=== PATIENT | male | born 1955 | race Caucasian/White ===

== ENCOUNTER 2020-07-10 13:25 | Outpatient (CLI) | payer OTHER ==
[~2020-07-10] VITALS: Ht 190.5 cm; Wt 104.5 kg
[2020-07-10] MEDS ORDERED: PRIM50TA33 PO (14:54)
[2020-07-10] MEDS ORDERED: CITA20TA9 PO (14:54)
[2020-07-10] MEDS ORDERED: CITA10TA7 PO (14:54)
[2020-07-10] MEDS ORDERED: BUPR150T24 PO (14:54)
[2020-07-10] MEDS ORDERED: CHOL200059 PO (15:39)
[2020-07-10] MEDS ORDERED: MULT-1056 PO (15:39)
[2020-07-10] MEDS ORDERED: AMLO1CAP5 PO (15:39)
[2020-07-10] MEDS ORDERED: PANT40TA52 PO (15:39)
[2020-07-10] MEDS ORDERED: VITA100T4 PO (15:39)
[2020-07-10] MEDS ORDERED: THIA100T66 PO (15:39)
[2020-07-10] MEDS ORDERED: LUTE20CA13 PO (15:39)
[2020-07-10] MEDS ORDERED: GABA300C PO (15:39)
[2020-07-11] MEDS ORDERED: TMSL.4C PO (10:25)
[2020-07-11] MEDS ORDERED: TRM50T PO (10:25)
[2020-07-11] MEDS ORDERED: NITR-65 PO (10:25)
== END 2020-07-10 15:43 | disposition home or self-care (01) ==
LOC: PREOP 13:25
PROVIDERS: ATTEND Urology
DX: Z01.818 Encounter for other preprocedural examination (principal)

== ENCOUNTER → 2020-07-10 | Outpatient (CLI) | payer OTHER ==
[~2020-07-10] MED LIST: AMLO1CAP5 PO; BUPR150T24 PO; CHOL200059 PO; CITA10TA7 PO; CITA20TA9 PO; GABA300C PO; LUTE20CA13 PO; MULT-1056 PO; NITR-65 PO; PANT40TA52 PO; PRIM50TA33 PO; THIA100T66 PO; TMSL.4C PO; TRM50T PO; VITA100T4 PO
--- NOTE | 2020-07-10 12:29 | Diagnostic Imaging Report ---
Supine abdomen at 11:21. Indication: Left nephrolithiasis There are no prior studies for comparison. 2 supine views of the abdomen were obtained. There is a ureteral stent in place on the left. The stent seems to be in good position. There is no clear evidence for a calculus overlying the left kidney. However there is a faint 3 to 4 mm calcific density along the pelvis adjacent to the ureteral stent. This could represent a small calculus within the left ureter. This could also be related to a phlebolith. There is a 6 mm rounded calcific density overlying the right kidney and there are a few punctate calcifications overlying the inferior pole of the right kidney as well. I suspect these findings are intrarenal. There is gas in both large and small bowel in a nonspecific fashion. There is no evidence for a bowel obstruction. There is at least a moderate amount of fecal material throughout the ascending, transverse and descending colon. There is no mass or organomegaly identified. The osseous structures are intact. Impression: 1. There is a ureteral stent in place on the left. While there is no evidence for a calculus overlying the left kidney, there is a faint 3 to 4 minute calcific density adjacent to the stent low in the pelvis. This could be within the distal left ureter. 2. There also appear to be nonobstructive calculi overlying the right kidney. Dictated by: Dictated on workstation # [id number]
== END ==
LOC: RAD 10:55
PROVIDERS: ATTEND Urology
DX: N20.0 Calculus of kidney (principal); Z96.0 Presence of urogenital implants
CPT/HCPCS: 74018

== ENCOUNTER 2020-07-11 07:10 | Day surgery (SDC) | payer OTHER ==
[~2020-07-11] VITALS: Ht 190.5 cm; Wt 104.5 kg
[2020-07-11] VITALS (10 sets, daily range): BP systolic 98–137; BP diastolic 65–95
[~2020-07-11 07:10] MED LIST changes: -NITR-65 PO; -TMSL.4C PO; -TRM50T PO
[2020-07-11] MEDS ORDERED: cefTRIAXone FOR IV USE 1,000 MG in WATER (STERILE) FOR INJECTION 10 ML IV ONE (07:30)
[2020-07-11] MEDS ORDERED: SEVOFLURANE (ULTANE) 15 ML INHAL SOLN ONE ×2 (07:35→09:02)
[2020-07-11] MEDS ORDERED: fentaNYL INJ 100 MCG/2 ML AMP ONE (07:35)
[2020-07-11] MEDS ORDERED: proPOfol 200 MG/20 ML (DIPRIVAN) VIAL IV ONE (07:35)
[2020-07-11] MEDS ORDERED: LIDOCAINE PF 2% 5 ML (XYLOCAINE) VIAL ONE (07:35)
[2020-07-11] MEDS ORDERED: ONDANSETRON 4 MG/2 ML (SDV) Z0FRAN ONE (07:35)
[2020-07-11] MEDS ORDERED: MIDAZOLAM 2 MG/2 ML (VERSED) VIAL ONE (07:35)
--- NOTE | 2020-07-11 07:52 | Diagnostic Imaging Report ---
INDICATION: Stones. FINDINGS: There is a right renal calculus measuring 5 mm. Left-sided double-J stent present. There are some radiopacities projecting along the course of the distal left stent which may be overlying phleboliths or retained ureteral stones. IMPRESSION: Right-sided nephrolithiasis, pelvic calcifications project over the course of the distal left ureteral stent. Dictated by: Dictated on workstation # [id number]
[2020-07-11] MEDS ORDERED: cefTRIAXone 1,000 MG IV (ROCEPHIN) VIAL ONE (07:59)
[2020-07-11] MEDS ORDERED: WATER (STERILE) FOR INJECTION 10 ML ONE (07:59)
[2020-07-11] MEDS: LACTATED RINGERS 1,000 ML IV PRN ×2 (08:10→09:16)
--- NOTE | 2020-07-11 08:31 | Progress Note-Pre Operative ---
Pre-Operative Progress Note H&P Reviewed The H&P was reviewed, patient examined and no changes noted. Date Seen by Provider: July 11, 2020 Time Seen by Provider: 08:30 Date H&P Reviewed: July 11, 2020 Time H&P Reviewed: 08:30 Pre-Operative Diagnosis: LT DISTAL URETERAL STONE NATALIYA GARCIA MD July 11, 2020 08:31
[2020-07-11] MEDS ORDERED: FUROSEMIDE 40 MG/4 ML INJ (LASIX) ONE (08:36)
[2020-07-11] MEDS ORDERED: KETOROLAC 30 MG/ML VIAL ONE (08:36)
[2020-07-11] MEDS ORDERED: fentaNYL INJ 100 MCG/2 ML AMP IVP ONE (08:45)
[2020-07-11] MEDS ORDERED: ONDANSETRON 4 MG/2 ML (SDV) Z0FRAN IVP PRN (08:45)
[2020-07-11] MEDS ORDERED: morphine INJ 10 MG/ML 1ML (SYR OR VIAL) IVP ONE (08:45)
[2020-07-11] MEDS ORDERED: MEPERIDINE (DEMEROL) INJ 50 MG/ML IVP ONE (08:45)
--- NOTE | 2020-07-11 08:54 | Progress Note-Post Operative ---
Post-Operative Progess Note Surgeon (s)/Clinical Services Manager (s) Surgeon NATALIYA GARCIA MD Clinical Services Manager: NONE Pre-Operative Diagnosis LT DISTAL URETERAL STONE Post-Operative Diagnosis SAME Procedure & Operative Findings Date of Procedure 07/11/20 Procedure Performed/Findings LT ESWL, CYSTOSCOPY WITH REMOVAL OF LT STENT Anesthesia Type GENERAL Estimated Blood Loss Estimated blood loss (mL): NONE Specimens/Packing Specimens Removed NONE TO PATH Packing: NONE NATALIYA GARCIA MD July 11, 2020 08:54
--- NOTE | 2020-07-11 08:57 | Discharge Inst-Urology ---
Discharge Inst-Urology Reconcile Patient Problems Problems Reviewed?: Yes Final Diagnosis LT DISTAL URETERAL STONE Patient Instructions/Follow Up Plan/Assessment/Instructions Please make appointment to been seen in office Monday 07/24, KUB prior to it KUB on way home Post ESWL instructions Stay off ASA Increase oral fluids for 48 hours and then as needed. Diet and Activity as tolerated. If questions or concerns contact your physician Or seek help at emergency department. NATALIYA GARCIA MD July 11, 2020 08:57
[2020-07-11] MEDS ORDERED: TRM50T PO (10:25)
[2020-07-11] MEDS ORDERED: TMSL.4C PO (10:25)
[2020-07-11] MEDS ORDERED: NITR-65 PO (10:25)
--- NOTE | 2020-07-11 11:53 | Diagnostic Imaging Report ---
INDICATION: Nephrolithiasis, post extracorporal shockwave lithotripsy. TECHNIQUE: Two supine views of the abdomen at 11:27 AM. CORRELATION STUDY: 07/11/2020. FINDINGS: The left ureteral stent has been removed. There is an approximately 6 mm calcification projecting over the inferior right renal silhouette. Calcifications in the pelvis appear unchanged. There is a moderate amount of overlying bowel gas and stool obscuring detail. Punctate densities over the additional abdomen may be reflective of gastrointestinal contents. Leftward curvature of the lumbar spine is present. IMPRESSION: Nonobstructing right renal stone. Left ureteral stent removal. Moderate stool retention. Dictated by: Dictated on workstation # [id number]
--- NOTE | 2020-07-11 12:32 | Anesthesia-General Post-Op ---
General Patient Condition Mental Status/LOC: Same as Preop Cardiovascular: Satisfactory Nausea/Vomiting: Absent Respiratory: Satisfactory Pain: Controlled Complications: Absent Post Op Complications Complications None Follow Up Care/Instructions Patient Instructions None needed. Anesthesia/Patient Condition Patient Condition Patient is doing well, no complaints, stable vital signs, no apparent adverse anesthesia problems. No complications reported per nursing. ANABEL GARCIA CRNA July 11, 2020 12:32
--- NOTE | 2020-07-11 13:34 | OPERATIVE REPORT ---
DATE OF SERVICE: 07/11/2020 PREOPERATIVE DIAGNOSIS: Left distal ureteral stone and BPH. POSTOPERATIVE DIAGNOSIS: Left distal ureteral stone and BPH. OPERATION PERFORMED: Left ESWL, cystoscopy and removal of left ureteral stent. SURGEON: Gera Garcia MD ANESTHESIA: General. COMPLICATIONS: None. DESCRIPTION OF PROCEDURE: Under satisfactory general anesthesia, the patient in supine position on the ESWL table, the left distal ureteral stone was localized. Shocks were delivered at a kV rising it gradually from 6 to 11. Total of 3000 shocks were delivered with complete disappearance of the stone. Towards the end of the procedure, the genitalia were prepped and draped in the usual sterile fashion. Flexible cystoscope was introduced in the bladder. The distal end of the left ureteral stent was grasped with grasping forceps and removed intact. The patient received 40 mg of Lasix and 30 mg of Toradol IV at the end of the procedure. He tolerated the procedure and anesthesia well and was sent to recovery room in stable condition. PLAN: In 2 weeks, if he wishes, so we can do ESWL on the right renal stone. Job ID: [id number] DocumentID: [id number] Dictated Date: 07/11/2020 09:15:26 Clinical Pharmacist Date: 07/11/2020 13:33:52 Dictated By: GERA GARCIA MD
== END 2020-07-11 11:29 | disposition home or self-care (01) ==
LOC: SDC 07:10
PROVIDERS: ATTEND Urology
DX: N20.1 Calculus of ureter (principal); N40.0 Benign prostatic hyperplasia without lower urinary tract symptoms; I10 Essential (primary) hypertension; K21.9 Gastro-esophageal reflux disease without esophagitis; G51.0 Bell's palsy; Z79.899 Other long term (current) drug therapy
CPT/HCPCS: 74018; 87081

== ENCOUNTER 2020-07-20 05:38 | Outpatient (CLI) | payer OTHER ==
[~2020-07-20] VITALS: Ht 193 cm; Wt 104.5 kg
[~2020-07-20 05:38] MED LIST changes: +NITR-65 PO; +TMSL.4C PO; +TRM50T PO
[2020-07-24] MEDS ORDERED: ASPI-999 PO (12:53)
[2020-07-25] MEDS ORDERED: NITR-65 PO (12:30)
[2020-07-25] MEDS ORDERED: TRM50T PO (12:34)
[2020-07-25] MEDS ORDERED: TMSL.4C PO (12:34)
== END 2020-07-24 14:10 | disposition home or self-care (01) ==
LOC: PREOP 05:38
PROVIDERS: ATTEND Urology
DX: Z01.818 Encounter for other preprocedural examination (principal)

== ENCOUNTER → 2020-07-24 | Outpatient (CLI) | payer OTHER ==
[~2020-07-24] MED LIST changes: +ASPI-999 PO
--- NOTE | 2020-07-24 15:53 | Diagnostic Imaging Report ---
INDICATION: Right nephrolithiasis KUB 12:52 PM There is 6 mm calculus projecting over the inferior pole of the right kidney. There is a moderate amount of stool in the colon. Bowel gas pattern is normal. There is scoliosis of the lumbar spine convex to the left. IMPRESSION: Right nephrolithiasis. No change from 07/11/2020. Dictated by: Dictated on workstation # [id number]
== END ==
LOC: RAD 11:47
PROVIDERS: ATTEND Urology
DX: N20.0 Calculus of kidney (principal)
CPT/HCPCS: 74018

== ENCOUNTER 2020-07-25 07:19 | Day surgery (SDC) | payer OTHER ==
[~2020-07-25] VITALS: Ht 193 cm; Wt 104.5 kg
[2020-07-25] VITALS (10 sets, daily range): BP systolic 96–136; BP diastolic 67–109
--- NOTE | 2020-07-25 07:53 | Progress Note-Pre Operative ---
Pre-Operative Progress Note H&P Reviewed The H&P was reviewed, patient examined and no changes noted. Date Seen by Provider: July 25, 2020 Time Seen by Provider: 07:52 Date H&P Reviewed: July 25, 2020 Time H&P Reviewed: 07:52 Pre-Operative Diagnosis: RT RENAL STONE NATALIYA GARCIA MD July 25, 2020 07:53
[2020-07-25] MEDS ORDERED: cefTRIAXone FOR IV USE 1,000 MG in WATER (STERILE) FOR INJECTION 10 ML IV ONE (08:00)
[2020-07-25] MEDS ORDERED: MIDAZOLAM 2 MG/2 ML (VERSED) VIAL IV ONE (08:00)
[2020-07-25] MEDS: LACTATED RINGERS 1,000 ML IV PRN ×2 (08:09→11:00)
--- NOTE | 2020-07-25 08:47 | Diagnostic Imaging Report ---
INDICATION: Pre-lithotripsy. Comparison 07/24/2020. FINDINGS: 6 mm calculus again noted overlying the inferior pole right kidney. This is unchanged in location since previous exam. No new calculi have developed. IMPRESSION: Persistent 6 mm calculus lower pole calyx right kidney. Dictated by: Dictated on workstation # [id number]
[2020-07-25] MEDS ORDERED: MIDAZOLAM 2 MG/2 ML (VERSED) VIAL ONE (09:11)
[2020-07-25] MEDS ORDERED: proPOfol 200 MG/20 ML (DIPRIVAN) VIAL IV ONE (09:11)
[2020-07-25] MEDS ORDERED: ONDANSETRON 4 MG/2 ML (SDV) Z0FRAN ONE (09:11)
[2020-07-25] MEDS ORDERED: LIDOCAINE PF 2% 5 ML (XYLOCAINE) VIAL ONE (09:11)
[2020-07-25] MEDS ORDERED: fentaNYL INJ 100 MCG/2 ML AMP ONE (09:12)
[2020-07-25] MEDS ORDERED: FUROSEMIDE 40 MG/4 ML INJ (LASIX) ONE (09:14)
[2020-07-25] MEDS ORDERED: KETOROLAC 30 MG/ML VIAL ONE (09:14)
[2020-07-25] MEDS ORDERED: SEVOFLURANE (ULTANE) 15 ML INHAL SOLN ONE ×4 (09:14→10:56)
--- NOTE | 2020-07-25 09:47 | Progress Note-Post Operative ---
Post-Operative Progess Note Surgeon (s)/Iron Molder Helper (s) Surgeon NATALIYA GARCIA MD Iron Molder Helper: NONE Pre-Operative Diagnosis RT RENAL STONE Post-Operative Diagnosis SAME Procedure & Operative Findings Date of Procedure 07/25/20 Procedure Performed/Findings RT ESWL Anesthesia Type GENERAL Estimated Blood Loss Estimated blood loss (mL): NONE Specimens/Packing Specimens Removed NONE Packing: NONE NATALIYA GARCIA MD July 25, 2020 09:47
--- NOTE | 2020-07-25 09:49 | Discharge Inst-Urology ---
Discharge Inst-Urology Reconcile Patient Problems Problems Reviewed?: Yes Final Diagnosis RT RENAL STONE Patient Instructions/Follow Up Plan/Assessment/Instructions Please make appointment to been seen in office in 2 weeks. KUB prior to it KUB on way home Post ESWL instructions In 48 hours, if no bleeding, may resume ASA Increase oral fluids for 48 hours and then as needed. Diet and Activity as tolerated. If questions or concerns contact your physician Or seek help at emergency department. NATALIYA GARCIA MD July 25, 2020 09:49
[2020-07-25] MEDS ORDERED: ONDANSETRON 4 MG/2 ML (SDV) Z0FRAN IVP PRN (11:30)
[2020-07-25] MEDS ORDERED: morphine INJ 10 MG/ML 1ML (SYR OR VIAL) IVP ONE (11:30)
[2020-07-25] MEDS ORDERED: MEPERIDINE (DEMEROL) INJ 50 MG/ML IVP ONE (11:30)
[2020-07-25] MEDS ORDERED: PROMETHAZINE INJ 25 MG/ML (PHENERGAN) AMP IVP ONE (11:30)
--- NOTE | 2020-07-25 11:33 | Anesthesia-General Post-Op ---
General Patient Condition Mental Status/LOC: Same as Preop Cardiovascular: Satisfactory Nausea/Vomiting: Absent Respiratory: Satisfactory Pain: Controlled Complications: Absent Post Op Complications Complications None Follow Up Care/Instructions Patient Instructions None needed. Anesthesia/Patient Condition Patient Condition Patient is doing well, no complaints, stable vital signs, no apparent adverse anesthesia problems. No complications reported per nursing. RAIMUNDO OCASIO CRNA July 25, 2020 11:33
[2020-07-25] MEDS ORDERED: NITR-65 PO (12:30)
[2020-07-25] MEDS ORDERED: TRM50T PO (12:34)
[2020-07-25] MEDS ORDERED: TMSL.4C PO (12:34)
--- NOTE | 2020-07-25 12:34 | Diagnostic Imaging Report ---
INDICATION: Nephrolithiasis. KUB 12:29 PM FINDINGS: There is a small calculus projecting over the inferior pole of the right kidney. Measures approximately 5 mm in diameter. Bowel gas pattern is normal. IMPRESSION: Right nephrolithiasis. Dictated by: Dictated on workstation # [id number]
--- NOTE | 2020-07-25 15:03 | OPERATIVE REPORT ---
DATE OF SERVICE: 07/25/2020 PREOPERATIVE DIAGNOSIS: Right renal stone. POSTOPERATIVE DIAGNOSIS: Right renal stone. OPERATION PERFORMED: Right ESWL. SURGEON: Gera Garcia MD. ANESTHESIA: General. COMPLICATIONS: None. DESCRIPTION OF PROCEDURE: Under satisfactory general anesthesia, the patient in supine position on the ESWL table, the right renal stone was localized. Shocks were delivered at kV of 6, a total of 3000 shocks showed the stone to be fragmented. The patient received 30 mg of Toradol and 40 mg of Lasix IV at the end of the procedure. He tolerated the procedure and anesthesia well and was sent to recovery room in stable condition. Job ID: [id number] DocumentID: [id number] Dictated Date: 07/25/2020 11:01:38 Alumni Secretary Date: 07/25/2020 15:03:17 Dictated By: GERA GARCIA MD
== END 2020-07-25 13:15 | disposition home or self-care (01) ==
LOC: SDC 07:19
PROVIDERS: ATTEND Urology
DX: N20.0 Calculus of kidney (principal); G51.0 Bell's palsy; I10 Essential (primary) hypertension; K21.9 Gastro-esophageal reflux disease without esophagitis; Z79.82 Long term (current) use of aspirin; Z87.891 Personal history of nicotine dependence; Z79.899 Other long term (current) drug therapy; Z90.89 Acquired absence of other organs
CPT/HCPCS: 74018; 87081

== ENCOUNTER 2020-07-28 07:35 | Day surgery (SDC) | payer OTHER ==
[~2020-07-28] VITALS: Ht 190 cm; Wt 104.0 kg
[2020-07-28] VITALS (9 sets, daily range): BP systolic 81–143; BP diastolic 52–84
[2020-07-28] MEDS ORDERED: ONDANSETRON 4 MG/2 ML (SDV) Z0FRAN ONE ×2 (07:42→12:42)
[2020-07-28] MEDS ORDERED: fentaNYL INJ 100 MCG/2 ML AMP ONE ×2 (07:42→12:43)
[2020-07-28] MEDS ORDERED: KETOROLAC 30 MG/ML VIAL ONE (07:42)
[2020-07-28] MEDS ORDERED: KETOROLAC 30 MG/ML VIAL IVP ONE (08:00)
[2020-07-28] MEDS ORDERED: fentaNYL INJ 100 MCG/2 ML AMP IVP PRN (08:00)
[2020-07-28] MEDS ORDERED: ONDANSETRON 4 MG/2 ML (SDV) Z0FRAN IVP ONE (08:00)
[2020-07-28] MEDS ORDERED: fentaNYL INJ 100 MCG/2 ML AMP IVP STA (08:02)
[2020-07-28 08:09] LABS: BASOPHILS % (AUTO) 0 % (0-10); EOSINOPHILS % (AUTO) 0 % (0-10); HEMATOCRIT 42 % (40-54); LYMPHOCYTES # (AUTO) 1.1 10^3/uL (1.0-4.0); LYMPHOCYTES % (AUTO) 9 % (12-44); MEAN CORPUSCULAR HEMOGLOBIN 31 pg (25-34); MEAN CORPUSCULAR HGB CONC 33 g/dL (32-36); MEAN CORPUSCULAR VOLUME 94 fL (80-99); MONOCYTES # (AUTO) 0.4 10^3/uL (0.0-1.0); MONOCYTES % (AUTO) 3 % (0-12); NEUTROPHILS # (AUTO) 11.1 10^3/uL (1.8-7.8); NEUTROPHILS % (AUTO) 87 % (42-75); PLATELET COUNT 244 10^3/uL (130-400); WHITE BLOOD COUNT 12.8 10^3/uL (4.3-11.0)
[2020-07-28 08:12] LABS: ALBUMIN 4.3 GM/DL (3.2-4.5)
[2020-07-28 08:13] LABS: POTASSIUM 4.2 MMOL/L (3.6-5.0)
[2020-07-28 08:14] LABS: CALCIUM 9.5 MG/DL (8.5-10.1)
[2020-07-28 08:15] LABS: TOTAL PROTEIN 7.3 GM/DL (6.4-8.2)
[2020-07-28 08:17] LABS: BILIRUBIN,TOTAL 0.4 MG/DL (0.1-1.0)
--- NOTE | 2020-07-28 08:18 | ED GU-Male ---
General Chief Complaint: Abdominal/GI Problems Stated Complaint: KIDNEY STONES Nursing Triage Note: RIGHT SIDED FLANK PAIN. HX OF KIDNEY STONES. Source: patient Exam Limitations: no limitations History of Present Illness Date Seen by Provider: July 28, 2020 Time Seen by Provider: 07:53 Initial Comments Here with complaint of right flank pain to the groin. States he is quite uncomfortable. Had therapy on the to blast kidney stones on the right. Apparently he has to go back in a few weeks for a repeat procedure as they were unable to completely disrupt the stones per the patient. Denies nausea or vomiting. Denies blood in his urine or dysuria. Denies fever chills. Follows with Dr. Dhaliwal. Timing/Duration: this morning Severity/Quality: severe, aching, sharp Location: right flank Radiation: groin Activities at Onset: none Prior Genitourinary Problems: similar symptoms Modifying Factors: Improves With Other (Nothing making it better or worse) Associated Symptoms: dysuria; No fever/chills; lower back pain; No na usea/vomiting Allergies and Home Medications Allergies Coded Allergies: No Known Drug Allergies (Unverified , 07/24/20) Home Medications Amlodipine Besylate/Benazepril 1 Each Capsule, 1 EACH PO DAILY, (Reported) Bupropion HCl 150 Mg Tab.er.24h, 150 MG PO DAILY, (Reported) Cholecalciferol (Vitamin D3) 50 Mcg Tablet, 50 MCG PO DAILY, (Reported) Citalopram Hydrobromide 10 Mg Tablet, 10 MG PO DAILY, (Reported) Citalopram Hydrobromide 20 Mg Tablet, 20 MG PO DAILY, (Reported) Gabapentin 300 Mg Capsule, 900 MG PO DAILY, (Reported) Lutein 20 Mg Capsule, 20 MG PO DAILY, (Reported) Multivit-Min/FA/Lycopen/Lutein 1 Each Tablet, 1 EACH PO DAILY, (Reported) Nitrofurantoin Monohyd/M-Cryst 100 Mg Capsule, 1 TAB PO BID WITH MEALS Prescribed by: BENITA FERNANDEZ on 07/11/20 1025 Nitrofurantoin Monohyd/M-Cryst 100 Mg Capsule, 1 TAB PO BID WITH MEALS Prescribed by: LEFTY LANDERS on 07/25/20 1230 Pantoprazole Sodium 40 Mg Tablet.dr, 40 MG PO DAILY, (Reported) Primidone 50 Mg Tablet, 150 MG PO DAILY, (Reported) Tamsulosin HCl 0.4 Mg Cap, 0.4 MG PO DAILY Prescribed by: BENITA FERNANDEZ on 07/11/20 1025 Tamsulosin HCl 0.4 Mg Cap, 0.4 MG PO DAILY Prescribed by: LEFTY LANDERS on 07/25/20 1234 Thiamine HCl 100 Mg Tablet, 100 MG PO DAILY, (Reported) Tramadol HCl 50 Mg Tablet, 1-2 TAB PO Q4H PRN for PAIN-MODERATE (5-7) Prescribed by: BENITA FERNANDEZ on 07/11/20 1025 Tramadol HCl 50 Mg Tablet, 50-100 MG PO Q4H PRN for PAIN-MODERATE (5-7) Prescribed by: LEFTY LANDERS on 07/25/20 1234 Vitamin B Complex 100 No.2 100 Mg Tablet.er, 100 MG PO DAILY, (Reported) Patient Home Medication List Home Medication List Reviewed: Yes Review of Systems Review of Systems Constitutional: see HPI; No chills, No fever EENTM: no symptoms reported Respiratory: No cough, No short of breath Cardiovascular: No chest pain, No palpitations Gastrointestinal: abdominal pain; No nausea, No vomiting Genitourinary: dysuria, flank pain Musculoskeletal: back pain; No muscle pain Skin: no symptoms reported Psychiatric/Neurological: No Symptoms Reported All Other Systemes Reviewed Negative Unless Noted: Yes Past Adtalac-Oexlmt-Pxbvcc Hx Past Med/Social Hx: Reviewed Nursing Past Med/Soc Hx Patient Social History Alcohol Use: Denies Use Smoking Status: Never a Smoker Type Used: Cigars Former Smoker, Quit: Mar 15, 2017 Recent Infectious Disease Expo: No Recent Hopitalizations: No Immunizations Up To Date Date of Pneumonia Vaccine: July 24, 2002 Date of Influenza Vaccine: Dec 15, 2020 Seasonal Allergies Seasonal Allergies: No Past Medical History Surgeries: Yes (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3 Pulse 48 Resp 16 B/P (MAP) 166/112 (130) Pulse Ox 95 O2 Delivery Room Air Capillary Refill : Less Than 3 Seconds Height, Weight, BMI Height: '" Weight: lbs. oz. kg; 28.00 BMI Method: General Appearance: WD/WN, no apparent distress Neck: full range of motion, supple Cardiovascular: regular rate, rhythm, no murmur Respiratory: lungs clear, normal breath sounds Gastrointestinal: soft; No guarding, No rebound; tenderness (Right flank) Back: normal inspection, no CVA tenderness, no vertebral tenderness Extremities: non-tender, normal inspection Neurologic/Psychiatric: alert, oriented x 3 Skin: normal color, warm/dry Progress/Results/Core Measures Suspected Sepsis Recent Fever Within 48 Hours: No Infection Criteria Present: None New/Unexplained Altered Menta: No Sepsis Screen: No Definite Risk SIRS Temperature: Pulse: 48 Respiratory Rate: 16 Laboratory Tests 07/28/20 07:51: White Blood Count 12.8H Blood Pressure 166 /112 Mean: 130 Laboratory Tests 07/28/20 07:51: Creatinine 1.23, Platelet Count 244, Total Bilirubin 0.4 Results/Orders Lab Results Laboratory Tests Test 07/28/20 07:51 07/28/20 08:20 Range/Units White Blood Count 12.8 H 4.3-11.0 10^3/uL Red Blood Count 4.50 4.30-5.52 10^6/uL Hemoglobin 14.0 13.3-17.7 g/dL Hematocrit 42 40-54 % Mean Corpuscular Volume 94 80-99 fL Mean Corpuscular Hemoglobin 31 25-34 pg Mean Corpuscular Hemoglobin Concent 33 32-36 g/dL Red Cell Distribution Width 14.0 10.0-14.5 % Platelet Count 244 130-400 10^3/uL Mean Platelet Volume 10.0 9.0-12.2 fL Immature Granulocyte % (Auto) 0 % Neutrophils (%) (Auto) 87 H 42-75 % Lymphocytes (%) (Auto) 9 L 12-44 % Monocytes (%) (Auto) 3 0-12 % Eosinophils (%) (Auto) 0 0-10 % Basophils (%) (Auto) 0 0-10 % Neutrophils # (Auto) 11.1 H 1.8-7.8 10^3/uL Lymphocytes # (Auto) 1.1 1.0-4.0 10^3/uL Monocytes # (Auto) 0.4 0.0-1.0 10^3/uL Eosinophils # (Auto) 0.0 0.0-0.3 10^3/uL Basophils # (Auto) 0.0 0.0-0.1 10^3/uL Immature Granulocyte # (Auto) 0.0 0.0-0.1 10^3/uL Neutrophils % (Manual) 88 % Lymphocytes % (Manual) 8 % Monocytes % (Manual) 3 % Band Neutrophils 1 % Blood Morphology Comment NORMAL Sodium Level 139 135-145 MMOL/L Potassium Level 4.2 3.6-5.0 MMOL/L Chloride Level 103 98-107 MMOL/L Carbon Dioxide Level 25 21-32 MMOL/L Anion Gap 11 5-14 MMOL/L Blood Urea Nitrogen 23 H 7-18 MG/DL Creatinine 1.23 0.60-1.30 MG/DL Estimat Glomerular Filtration Rate 59 BUN/Creatinine Ratio 19 Glucose Level 148 H 70-105 MG/DL Calcium Level 9.5 8.5-10.1 MG/DL Corrected Calcium 9.3 8.5-10.1 MG/DL Total Bilirubin 0.4 0.1-1.0 MG/DL Aspartate Amino Transf (AST/SGOT) 18 5-34 U/L Alanine Aminotransferase (ALT/SGPT) 19 0-55 U/L Alkaline Phosphatase 78 40-136 U/L C-Reactive Protein High Sensitivity 0.40 0.00-0.50 MG/DL Total Protein 7.3 6.4-8.2 GM/DL Albumin 4.3 3.2-4.5 GM/DL Urine Color YELLOW Urine Clarity CLEAR Urine pH 7.0 5-9 Urine Specific [place] 1.020 1.016-1.022 Urine Protein TRACE H NEGATIVE Urine Glucose (UA) NEGATIVE NEGATIVE Urine Ketones NEGATIVE NEGATIVE Urine Nitrite NEGATIVE NEGATIVE Urine Bilirubin NEGATIVE NEGATIVE Urine Urobilinogen 0.2 < = 1.0 MG/DL Urine Leukocyte Esterase NEGATIVE NEGATIVE Urine RBC (Auto) 2+ H NEGATIVE Urine RBC 5-10 H /HPF Urine WBC 0-2 /HPF Urine Crystals PRESENT H /LPF Urine Amorphous Sediment FEW HANS URATES H /LPF Urine Bacteria TRACE /HPF Urine Casts NONE /LPF Urine Mucus NEGATIVE /LPF Urine Culture Indicated NO My Orders Orders - BEATRICE BELLO MD Fentanyl Inj (Sublimaze Injection) (07/28/20 07:42) Ketorolac Injection (Toradol Injection) (07/28/20 07:42) Ondansetron Injection (Zofran Injectio (07/28/20 07:42) Ondansetron Injection (Zofran Injectio (07/28/20 08:00) Fentanyl Inj (Sublimaze Injection) (07/28/20 08:00) Ketorolac Injection (Toradol Injection) (07/28/20 08:00) Cbc With Automated Diff (07/28/20 08:02) Comprehensive Metabolic Panel (07/28/20 08:02) Hs C Reactive Protein (07/28/20 08:02) Ua Culture If Indicated (07/28/20 08:02) Abdomen/Kub 1view (07/28/20 08:02) Fentanyl Inj (Sublimaze Injection) (07/28/20 08:02) Manual Differential (07/28/20 07:51) Hydromorphone Injection (Dilaudid Inject (07/28/20 08:30) Ct Abd/Pelvis Wo(Kidney Stone) (07/28/20 09:43) Hydromorphone Injection (Dilaudid Inject (07/28/20 09:45) Ed Iv/Invasive Line Start (07/28/20 09:43) Ns Iv 1000 Ml (Sodium Chloride 0.9%) (07/28/20 09:45) Ketamine Syringe (Ed Only) (Ketamine Syr (07/28/20 10:45) Ceftriaxone For Iv Use (Rocephin For I (07/28/20 11:38) Medications Given in ED Current Medications Medications Dose Ordered Sig/Dominic Route Start Time Stop Time Status Last Admin Dose Admin Fentanyl Citrate 50 mcg ONCE PRN IVP 07/28/20 08:00 07/28/20 07:58 50 MCG Hydromorphone HCl 0.5 mg ONCE ONCE IV 07/28/20 08:30 07/28/20 08:31 DC 07/28/20 08:25 0.5 MG Hydromorphone HCl 0.5 mg ONCE ONCE IV 07/28/20 09:45 07/28/20 09:48 DC 07/28/20 09:55 0.5 MG Ketamine HCl 25 mg ONCE ONCE IV 07/28/20 10:45 07/28/20 10:46 DC 07/28/20 10:41 25 MG Ketorolac Tromethamine 30 mg ONCE ONCE IVP 07/28/20 08:00 07/28/20 08:01 DC 07/28/20 07:58 30 MG Ondansetron HCl 4 mg ONCE ONCE IVP 07/28/20 08:00 07/28/20 08:01 DC 07/28/20 07:58 4 MG Sodium Chloride 1,000 ml @ 0 mls/hr Q0M ONCE IV 07/28/20 09:45 07/28/20 09:48 DC 07/28/20 09:57 1,000 MLS/HR Vital Signs/I&O 07/28/20 07:45 Temp 35.3 Pulse 48 Resp 16 B/P (MAP) 166/112 (130) Pulse Ox 95 O2 Delivery Room Air Capillary Refill : Less Than 3 Seconds Blood Pressure Mean: 130 Progress Note : Progress Note Seen and evaluated. IV, labs, UA, fentanyl 50 mcg IV, Toradol 30 mg IV and Zofran 4 mg IV ordered. KUB ordered. Monitor patient. 0944: Dilaudid 0.5 mg ordered and repeat dose has been ordered now with normal saline 1 L bolus. We will go ahead and get CT scan of the abdomen pelvis due to persistent pain. I did update Dr. Dhaliwal regarding the status of this patient. If patient requires admission due to pain control needs, he will be able to consult intermittently throughout the weekend although he is out of town for a bit. Monitor patient. 1137: I have discussed the case with Dr. Petersen and she accepts patient for admission, inpatient status. She will initiate Dilaudid [employer]IP[employer]. Patient did receive ketamine 25 mg IV which is finally controlled his pain down to a [address] Dhaliwal will see the patient this afternoon. Patient and family in agreement with the plan. Diagnostic Imaging Diagonstic Imaging: Xray Plain Films/CT/US/NM/MRI: abdomen Comments [facility] [place], [place] NAME: WINNIE AHMADI [facility] REC#: [id number] PT STATUS: REG ER : 1955 PHYSICIAN: BEATRICE BELLO MD ADMIT DATE: 07/28/20/ER Draft Date of Exam:07/28/20 ABDOMEN/KUB 1VIEW INDICATION: Abdominal pain, right-sided flank pain with history of stones. TECHNIQUE: 2 supine view of the abdomen 8:52 AM CORRELATION STUDY: 07/25/2020 FINDINGS: Large amount of stool throughout the colon obscures details. No bowel obstruction. There has been change in location of an approximately 8 mm stone now projects over the right L4 transverse process. This favors probable interval migration of the right renal stone into the right ureter. Pelvic calcifications unchanged. Left curvature and mildly depressed degenerative change about the lumbar spine. Mild sclerosis left sacroiliac joint. IMPRESSION: 1. There has been likely migration of an approximately 8 mm stone now located in the right L4 transverse process likely within the region of the right ureter. If further assessment is desired, renal colic CT imaging would be recommended Dictated on workstation # [id number] Dict: 07/28/20 0856 Trans: 07/28/20 0900 CV [id number] Interpreted by: EZIO MUSTAFA DO Electronically signed by: Zachery Imaging: CT Plain Films/CT/US/NM/MRI: abdomen, pelvis Comments [facility] [place], [place] NAME: WINNIE AHMADI [facility] REC#: [id number] PT STATUS: REG ER : 1955 PHYSICIAN: BEATRICE BELLO MD ADMIT DATE: 07/28/20/ER Draft Date of Exam:07/28/20 CT ABD/PELVIS WO(KIDNEY STONE) PROCEDURE: CT urinary tract, rule out kidney stone. TECHNIQUE: Multiple contiguous axial images were obtained through the abdomen and pelvis without the use of intravenous contrast. Auto Exposure Controls were utilized during the CT exam to meet ALARA standards for radiation dose reduction. INDICATION: Right-sided flank pain. History of left-sided renal calculi. COMPARISON: None. FINDINGS: The heart is unremarkable. Subsegmental atelectasis is seen in the lung bases, right greater than left. A 6 mm calculus is seen in the proximal right ureter with moderate right-sided hydroureteronephrosis. No obstructing calculi or hydronephrosis is seen on the left. Perinephric fat stranding is seen involving the right kidney. The urinary bladder is nondistended. No bladder calculi are present. Note is made of protrusion of the urinary bladder into a small right inguinal hernia. There is generalized thickening of the left adrenal gland. Mild thickening of the right adrenal gland is also noted. The liver, spleen, and pancreas have a normal appearance. There is no pathologically enlarged mesenteric or retroperitoneal adenopathy. The bowel loops are nondilated. A moderate amount of stool is seen in the colon. Diverticulosis of the descending and sigmoid colon is seen without evidence of acute diverticulitis. There is no free fluid or free air. No acute osseous abnormalities. There is left convexity curvature of the lumbar spine. There is calcified aortic and iliac atherosclerotic plaque without aneurysm. There is no free air, loculated collection, or adenopathy in the pelvis. IMPRESSION: 1. Calculus in the proximal right ureter measuring 6 mm with moderate right-sided hydroureteronephrosis. 2. Small right inguinal hernia which contains a portion of the urinary bladder. 3. Moderate amount of stool in the colon, which can be seen with constipation. 4. Diverticulosis of the descending and sigmoid colon without evidence of acute diverticulitis. 5. Generalized thickening of the adrenal glands, left greater than right. Consider adrenal protocol CT or MRI to further evaluate on a nonemergent basis. Dictated on workstation # [id number] Dict: 07/28/20 1032 Trans: 07/28/20 1042 [facility] [id number] Interpreted by: SHAILA FONTAINE DO Electronically signed by: Departure Communication (Admissions) Time/Spoke to Admitting Phy: 11:37 Time/Spoke to Consulting Phy: 10:45 Impression Primary Impression: Right ureteral stone Additional Impression: Intractable pain Disposition: ADMITTED INPATIENT Condition: Stable Admissions Decision to Admit Reason: Admit from ER (General) Decision to Admit/Date: July 28, 2020 Time/Decision to Admit Time: 11:37 Departure-Patient Inst. Referrals: TARIQ SABILLON MD (PCP/Family) Primary Care Physician BEATRICE BELLO MD July 28, 2020 08:17
[2020-07-28 08:19] LABS: CREATININE SERUM 1.23 MG/DL (0.60-1.30)
[2020-07-28 08:22] LABS: BAND NEUTROPHILS 1 %; LYMPHOCYTES % (MANUAL) 8 %; MONOCYTES % (MANUAL) 3 %; NEUTROPHILS % (MANUAL) 88 %; RBC MORPH NORMAL
[2020-07-28 08:29] LABS: BILIRUBIN,URINE NEGATIVE (NEGATIVE); CLARITY,URINE CLEAR; COLOR,URINE YELLOW; GLUCOSE, URINE (UA) NEGATIVE (NEGATIVE); KETONES,URINE NEGATIVE (NEGATIVE); LEUKOCYTE ESTERASE ,URINE NEGATIVE (NEGATIVE); NITRITE,URINE NEGATIVE (NEGATIVE); PROTEIN,URINE TRACE (NEGATIVE)
[2020-07-28] MEDS ORDERED: HYDROmorphone 2 MG/ML VIAL (DILAUDID) IV ONE ×2 (08:30→09:45)
[2020-07-28 08:37] LABS: AMORPHOUS SEDIMENT,UR FEW AMOR URATES /LPF; BACTERIA,URINE TRACE /HPF; WBC,URINE 0-2 /HPF
--- NOTE | 2020-07-28 09:00 | Diagnostic Imaging Report ---
INDICATION: Abdominal pain, right-sided flank pain with history of stones. TECHNIQUE: 2 supine view of the abdomen 8:52 AM CORRELATION STUDY: 07/25/2020 FINDINGS: Large amount of stool throughout the colon obscures details. No bowel obstruction. There has been change in location of an approximately 8 mm stone now projects over the right L4 transverse process. This favors probable interval migration of the right renal stone into the right ureter. Pelvic calcifications unchanged. Left curvature and mildly depressed degenerative change about the lumbar spine. Mild sclerosis left sacroiliac joint. IMPRESSION: 1. There has been likely migration of an approximately 8 mm stone now located in the right L4 transverse process likely within the region of the right ureter. If further assessment is desired, renal colic CT imaging would be recommended Dictated by: Dictated on workstation # [id number]
[2020-07-28] MEDS ORDERED: NS IV 1000 ML 1,000 ML IV ONE (09:45)
--- NOTE | 2020-07-28 10:42 | Diagnostic Imaging Report ---
PROCEDURE: CT urinary tract, rule out kidney stone. TECHNIQUE: Multiple contiguous axial images were obtained through the abdomen and pelvis without the use of intravenous contrast. Auto Exposure Controls were utilized during the CT exam to meet ALARA standards for radiation dose reduction. INDICATION: Right-sided flank pain. History of left-sided renal calculi. COMPARISON: None. FINDINGS: The heart is unremarkable. Subsegmental atelectasis is seen in the lung bases, right greater than left. A 6 mm calculus is seen in the proximal right ureter with moderate right-sided hydroureteronephrosis. No obstructing calculi or hydronephrosis is seen on the left. Perinephric fat stranding is seen involving the right kidney. The urinary bladder is nondistended. No bladder calculi are present. Note is made of protrusion of the urinary bladder into a small right inguinal hernia. There is generalized thickening of the left adrenal gland. Mild thickening of the right adrenal gland is also noted. The liver, spleen, and pancreas have a normal appearance. There is no pathologically enlarged mesenteric or retroperitoneal adenopathy. The bowel loops are nondilated. A moderate amount of stool is seen in the colon. Diverticulosis of the descending and sigmoid colon is seen without evidence of acute diverticulitis. There is no free fluid or free air. No acute osseous abnormalities. There is left convexity curvature of the lumbar spine. There is calcified aortic and iliac atherosclerotic plaque without aneurysm. There is no free air, loculated collection, or adenopathy in the pelvis. IMPRESSION: 1. Calculus in the proximal right ureter measuring 6 mm with moderate right-sided hydroureteronephrosis. 2. Small right inguinal hernia which contains a portion of the urinary bladder. 3. Moderate amount of stool in the colon, which can be seen with constipation. 4. Diverticulosis of the descending and sigmoid colon without evidence of acute diverticulitis. 5. Generalized thickening of the adrenal glands, left greater than right. Consider adrenal protocol CT or MRI to further evaluate on a nonemergent basis. Dictated by: Dictated on workstation # [id number]
[2020-07-28] MEDS ORDERED: KETAMINE/NaCl 50 MG/5 ML SYRINGE (ED ONLY) IV ONE (10:45)
[2020-07-28] MEDS ORDERED: cefTRIAXone FOR IV USE 1,000 MG in WATER (STERILE) FOR INJECTION 10 ML IV STA (11:38)
[2020-07-28] MEDS ORDERED: NALOXONE 0.4 MG/ML 1 ML (NARCAN) VIAL IV PRN (11:45)
[2020-07-28] MEDS ORDERED: ONDANSETRON 4 MG/2 ML (SDV) Z0FRAN IV PRN (11:45)
[2020-07-28] MEDS ORDERED: diphenhydrAMINE 50 MG/ML INJ (BENADRYL) IV PRN (11:45)
[2020-07-28] MEDS ORDERED: NS IV 1000 ML 1,000 ML IV SCH (11:45)
[2020-07-28] MEDS ORDERED: HYDROmorphone PF INJECTION 10 MG in NS (IVPB) 50 ML IV SCH (11:45)
[2020-07-28] MEDS ORDERED: cefTRIAXone 1,000 MG/2.86 ml vial (IM ONLY) ONE (12:21)
[2020-07-28] MEDS ORDERED: WATER (STERILE) FOR INJECTION 10 ML ONE (12:21)
--- NOTE | 2020-07-28 12:38 | Progress Note-Pre Operative ---
Pre-Operative Progress Note H&P Reviewed The H&P was reviewed, patient examined and no changes noted. Date Seen by Provider: July 28, 2020 Time Seen by Provider: 12:38 Date H&P Reviewed: July 28, 2020 Time H&P Reviewed: 12:38 Pre-Operative Diagnosis: RT PROXIMAL URETERAL STONE NATALIYA GARCIA MD July 28, 2020 12:38
--- NOTE | 2020-07-28 12:40 | Progress Note-Post Operative ---
Post-Operative Progess Note Surgeon (s)/Disease Case Manager (s) Surgeon NATALIYA GARCIA MD Disease Case Manager: NONE Pre-Operative Diagnosis RT PROXIMAL URETERAL STONE Post-Operative Diagnosis SAME Procedure & Operative Findings Date of Procedure 07/28/20 Procedure Performed/Findings CYSTOSCOPY, RT URETERAL STONE MANIPULATION AND STENT Anesthesia Type GENERAL Estimated Blood Loss Estimated blood loss (mL): NEGLIGIGBLE Specimens/Packing Specimens Removed NONE Packing: NONE NATALIYA GARCIA MD July 28, 2020 12:40
[2020-07-28] MEDS ORDERED: SEVOFLURANE (ULTANE) 15 ML INHAL SOLN ONE (12:42)
[2020-07-28] MEDS ORDERED: NEOSTIGMINE 3 MG/3 ML VIAL ONE (12:42)
[2020-07-28] MEDS ORDERED: proPOfol 200 MG/20 ML (DIPRIVAN) VIAL IV ONE (12:42)
[2020-07-28] MEDS ORDERED: GLYCOPYRROLATE 0.2 MG/ML (ROBINUL) 2 ML VIAL ONE (12:42)
[2020-07-28] MEDS ORDERED: LIDOCAINE PF 2% 5 ML (XYLOCAINE) VIAL ONE (12:42)
[2020-07-28] MEDS ORDERED: ROCURONIUM 10 MG/ML 5 ML SYRINGE IV ONE (12:42)
[2020-07-28] MEDS ORDERED: MIDAZOLAM 2 MG/2 ML (VERSED) VIAL ONE (12:43)
[2020-07-28] MEDS: LACTATED RINGERS 1,000 ML IV PRN ×2 (12:45→13:23)
--- NOTE | 2020-07-28 13:46 | Discharge Inst-Urology ---
Discharge Inst-Urology Reconcile Patient Problems Problems Reviewed?: Yes Final Diagnosis RT PROXIMAL URETERAL STONE Patient Instructions/Follow Up Plan/Assessment/Instructions Keep appointment 08/08 with KUB prior to it. Keep same Rx and instructions post surgery 08/25 Increase oral fluids for 48 hours and then as needed. Diet and Activity as tolerated. If questions or concerns contact your physician Or seek help at emergency department. NATALIYA GARCIA MD July 28, 2020 13:46
--- NOTE | 2020-07-28 14:33 | Diagnostic Imaging Report ---
INDICATION: Ureteral stent placement. COMPARISON: None TOTAL FLUOROSCOPY TIME: 96 seconds TOTAL NUMBER FLUOROSCOPIC IMAGES SAVED: 2 Fluoroscopic guidance was provided intraoperatively during ureteral stent placement. Images provided show ureteral stent projecting over the expected location of the right ureter. Please note, interpreting radiologist was not present during the procedure. IMPRESSION:. Fluoroscopic guidance provided during ureteral stent placement. Dictated by: Dictated on workstation # [id number]
--- NOTE | 2020-07-28 15:25 | Anesthesia-General Post-Op ---
General Patient Condition Mental Status/LOC: Same as Preop Cardiovascular: Satisfactory Nausea/Vomiting: Absent Respiratory: Satisfactory Pain: Controlled Complications: Absent Post Op Complications Complications None Follow Up Care/Instructions Patient Instructions None needed. Anesthesia/Patient Condition Patient Condition Patient is doing well, no complaints, stable vital signs, no apparent adverse anesthesia problems. No complications reported per nursing. GOLDIE MCCLELLAN DO July 28, 2020 15:25
--- NOTE | 2020-07-28 18:10 | OPERATIVE REPORT ---
DATE OF SERVICE: 07/28/2020 PREOPERATIVE DIAGNOSES: 1. Right proximal ureteral stone. 2. BPH. POSTOPERATIVE DIAGNOSES: 1. Right proximal ureteral stone. 2. BPH. OPERATIONS PERFORMED: Cystoscopy, right ureteral stone manipulation and insertion of right double-J stent. SURGEON: Gera Garcia MD. ANESTHESIA: General. COMPLICATIONS: None. DESCRIPTION OF PROCEDURE: Under satisfactory general anesthesia, the patient in lithotomy position, genitalia were prepped and draped in the usual sterile fashion. Cystoscope was introduced under vision. The anterior urethra was normal. The prostate revealed a median bar causing bladder neck obstruction. The right ureteral orifices were examined again and were found to be small size. I went ahead and passed a 5-Senegalese ureteral catheter to the level of the stone, flushed it with saline back into the kidney, removed the ureteral catheter and then passed a 6-Senegalese 26 cm double-J stent, could not go all the way up to the kidney, so I exchanged it to a 6-Senegalese 24 cm and interestingly enough it did pass through the right renal pelvis. The wire was removed and the stent was seen nicely proximally, fluoroscopically and distally endoscopically. Bladder was evacuated and the cystoscope was removed. The patient tolerated the procedure and anesthesia well and was sent to the recovery room in stable condition. PLAN: Keep his appointment, his instructions and everything he had after his ESWL this past Friday and has an appointment on Friday08/08/2020 to proceed with repeat ESWL on Friday08/09/2020. This was all explained to his . Job ID: [id number] DocumentID: [id number] Dictated Date: 07/28/2020 13:48:53 Transportation Program Director Date: 07/28/2020 18:09:00 Dictated By: GERA GARCIA MD
[2020-07-28] MEDS ORDERED: ACHD5005 PO (22:34)
[2020-07-28] MEDS ORDERED: ONDA4TAB11 PO (22:34)
[2020-07-29] MEDS ORDERED: SENNA W/DOCUSATE (SENOKOT S) TABLET PO SCH (09:00)
== END 2020-07-28 15:29 ==
LOC: EDUNIT# 07:35 → ER 07:37 → 4TH 11:42 → UNDOADMIN 11:42 → SDC 12:35
PROVIDERS: ATTEND Urology
DX: N20.1 Calculus of ureter (principal); I10 Essential (primary) hypertension; K21.9 Gastro-esophageal reflux disease without esophagitis; G51.0 Bell's palsy; Z79.899 Other long term (current) drug therapy; Z87.891 Personal history of nicotine dependence; Z90.89 Acquired absence of other organs
CPT/HCPCS: 52332; 52352; 74018; 74176; 76000; 80053; 81000; 85007; 85027; 86141; 99285; C2625; 36415

== ENCOUNTER 2020-07-28 21:26 | Emergency (ER) | payer OTHER ==
[~2020-07-28] VITALS: Ht 190 cm; Wt 104.3 kg
--- NOTE | 2020-07-28 21:42 | ED GU-Female ---
General Chief Complaint: - Urinary Stated Complaint: KIDNEY STONES Nursing Triage Note: Patient ambulatory to ER with c/o unable to urinate. Patient was diagnosed with kidney stones and had a stent placed by Dr Garcia today at 1 pm. Patient states he has uncontrolled pain to the right flank area and rates the pain at a 10. Pt took a tramadol at 20:30 tonight with no relief. Pt is on Flomax and macrobid. Nursing Sepsis Screen: No Definite Risk Source: patient Exam Limitations: no limitations History of Present Illness Date Seen by Provider: July 28, 2020 Time Seen by Provider: :22 Initial Comments Patient presents ER by a private conveyance with his significant other and chief complaint he for the past couple hours did not mentally urinate adequately. He did have a stent placed earlier today by Dr. Fairchild, urology. Friday, 3 days ago he had lithotripsy for right ureteral stone. He says the stone was pushed back up on the right after stent placement. He has stones on the left side. He says never had problems with kidney stones in the past. He is on an antibiotic but he does not know the name. He is not having any fevers or nausea but he rates his pain is a 10 out of 10 despite tramadol. He is on Flomax. Allergies and Home Medications Allergies Coded Allergies: No Known Drug Allergies (Unverified , 07/24/20) Home Medications Amlodipine Besylate/Benazepril 1 Each Capsule, 1 EACH PO DAILY, (Reported) Bupropion HCl 150 Mg Tab.er.24h, 150 MG PO DAILY, (Reported) Cholecalciferol (Vitamin D3) 50 Mcg Tablet, 50 MCG PO DAILY, (Reported) Citalopram Hydrobromide 10 Mg Tablet, 10 MG PO DAILY, (Reported) Citalopram Hydrobromide 20 Mg Tablet, 20 MG PO DAILY, (Reported) Gabapentin 300 Mg Capsule, 900 MG PO DAILY, (Reported) Lutein 20 Mg Capsule, 20 MG PO DAILY, (Reported) Multivit-Min/FA/Lycopen/Lutein 1 Each Tablet, 1 EACH PO DAILY, (Reported) Nitrofurantoin Monohyd/M-Cryst 100 Mg Capsule, 1 TAB PO BID WITH MEALS Prescribed by: BENITA FERNANDEZ on 07/11/20 1025 Nitrofurantoin Monohyd/M-Cryst 100 Mg Capsule, 1 TAB PO BID WITH MEALS Prescribed by: LEFTY LANDERS on 07/25/20 1230 Pantoprazole Sodium 40 Mg Tablet.dr, 40 MG PO DAILY, (Reported) Primidone 50 Mg Tablet, 150 MG PO DAILY, (Reported) Tamsulosin HCl 0.4 Mg Cap, 0.4 MG PO DAILY Prescribed by: BENITA FERNANDEZ on 07/11/20 1025 Tamsulosin HCl 0.4 Mg Cap, 0.4 MG PO DAILY Prescribed by: LEFTY LANDERS on 07/25/20 1234 Thiamine HCl 100 Mg Tablet, 100 MG PO DAILY, (Reported) Tramadol HCl 50 Mg Tablet, 1-2 TAB PO Q4H PRN for PAIN-MODERATE (5-7) Prescribed by: BENITA FERNANDEZ on 07/11/20 1025 Tramadol HCl 50 Mg Tablet, 50-100 MG PO Q4H PRN for PAIN-MODERATE (5-7) Prescribed by: LEFTY LANDERS on 07/25/20 1234 Vitamin B Complex 100 No.2 100 Mg Tablet.er, 100 MG PO DAILY, (Reported) Patient Home Medication List Home Medication List Reviewed: Yes Review of Systems Review of Systems Constitutional: No chills, No fever EENTM: No ear discharge, No ear pain Respiratory: No cough, No short of breath Cardiovascular: No chest pain, No edema Gastrointestinal: No abdominal pain, No nausea, No vomiting Genitourinary: see HPI; denies discharge, denies dysuria; flank pain; denies hematuria Musculoskeletal: No back pain, No joint pain All Other Systemes Reviewed Negative Unless Noted: Yes Past Iydmjva-Cdfypz-Rxdcuk Hx Patient Social History Alcohol Use: Denies Use Smoking Status: Former Smoker Type Used: Cigars Former Smoker, Quit: Mar 15, 2017 Recent Infectious Disease Expo: No Recent Hopitalizations: No Immunizations Up To Date Date of Pneumonia Vaccine: July 24, 2002 Date of Influenza Vaccine: Dec 15, 2020 Seasonal Allergies Seasonal Allergies: No Past Medical History Surgeries: Yes (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, R ing hernia, R breast lumpectomy, ESWL) Adenoidectomy, Eye Surgery, Tonsillectomy Respiratory: No Currently Using CPAP: No Currently Using BIPAP: No Cardiac: Yes Hypertension Neurological: Yes (bells palsey, tremors) Genitourinary: Yes (ESWL) Kidney Stones Gastrointestinal: Yes Gastroesophageal Reflux Musculoskeletal: No Endocrine: No HEENT: Yes (hx of L eye detached retina) Cancer: No Psychosocial: No Integumentary: No Blood Disorders: No Family Medical History No Pertinent Family Hx Physical Exam Vital Signs Vital Signs - First Documented 07/28/20 21:31 Temp 35.4 Pulse 55 Resp 18 B/P (MAP) 159/99 (119) Pulse Ox 95 O2 Delivery Room Air Capillary Refill : Less Than 3 Seconds Height, Weight, BMI Height: '" Weight: lbs. oz. kg; 28.00 BMI Method: General Appearance: WD/WN, mild distress HEENT: PERRL/EOMI, pharynx normal Neck: full range of motion, normal inspection Cardiovascular: normal peripheral pulses, regular rate, rhythm Respiratory: no respiratory distress, no accessory muscle use Gastrointestinal: non tender, soft Neurologic/Psychiatric: alert, normal mood/affect, oriented x 3 Skin: normal color, warm/dry Progress/Results/Core Measures Suspected Sepsis Recent Fever Within 48 Hours: No Infection Criteria Present: None New/Unexplained Altered Menta: No Sepsis Screen: No Definite Risk SIRS Temperature: Pulse: 55 Respiratory Rate: 18 Laboratory Tests 07/28/20 21:40: White Blood Count 8.4 Blood Pressure 159 /99 Mean: 119 Laboratory Tests 07/28/20 21:40: Creatinine 1.14, Platelet Count 227, Total Bilirubin 0.4 Results/Orders Lab Results Laboratory Tests Test 07/28/20 21:40 Range/Units White Blood Count 8.4 4.3-11.0 10^3/uL Red Blood Count 4.34 4.30-5.52 10^6/uL Hemoglobin 13.6 13.3-17.7 g/dL Hematocrit 41 40-54 % Mean Corpuscular Volume 93 80-99 fL Mean Corpuscular Hemoglobin 31 25-34 pg Mean Corpuscular Hemoglobin Concent 34 32-36 g/dL Red Cell Distribution Width 14.3 10.0-14.5 % Platelet Count 227 130-400 10^3/uL Mean Platelet Volume 9.8 9.0-12.2 fL Immature Granulocyte % (Auto) 0 % Neutrophils (%) (Auto) 84 H 42-75 % Lymphocytes (%) (Auto) 11 L 12-44 % Monocytes (%) (Auto) 4 0-12 % Eosinophils (%) (Auto) 0 0-10 % Basophils (%) (Auto) 0 0-10 % Neutrophils # (Auto) 7.1 1.8-7.8 10^3/uL Lymphocytes # (Auto) 0.9 L 1.0-4.0 10^3/uL Monocytes # (Auto) 0.3 0.0-1.0 10^3/uL Eosinophils # (Auto) 0.0 0.0-0.3 10^3/uL Basophils # (Auto) 0.0 0.0-0.1 10^3/uL Immature Granulocyte # (Auto) 0.0 0.0-0.1 10^3/uL Urine Color YELLOW Urine Clarity CLEAR Urine pH 6.0 5-9 Urine Specific [place] 1.025 H 1.016-1.022 Urine Protein 1+ H NEGATIVE Urine Glucose (UA) NEGATIVE NEGATIVE Urine Ketones NEGATIVE NEGATIVE Urine Nitrite NEGATIVE NEGATIVE Urine Bilirubin NEGATIVE NEGATIVE Urine Urobilinogen 0.2 < = 1.0 MG/DL Urine Leukocyte Esterase TRACE H NEGATIVE Urine RBC (Auto) 3+ H NEGATIVE Urine RBC >100 H /HPF Urine WBC 0-2 /HPF Urine Squamous Epithelial Cells RARE /HPF Urine Crystals NONE /LPF Urine Bacteria NEGATIVE /HPF Urine Casts NONE /LPF Urine Mucus NEGATIVE /LPF Urine Culture Indicated NO Sodium Level 136 135-145 MMOL/L Potassium Level 4.2 3.6-5.0 MMOL/L Chloride Level 105 98-107 MMOL/L Carbon Dioxide Level 21 21-32 MMOL/L Anion Gap 10 5-14 MMOL/L Blood Urea Nitrogen 20 H 7-18 MG/DL Creatinine 1.14 0.60-1.30 MG/DL Estimat Glomerular Filtration Rate > 60 BUN/Creatinine Ratio 18 Glucose Level 120 H 70-105 MG/DL Calcium Level 9.4 8.5-10.1 MG/DL Corrected Calcium 9.3 8.5-10.1 MG/DL Total Bilirubin 0.4 0.1-1.0 MG/DL Aspartate Amino Transf (AST/SGOT) 17 5-34 U/L Alanine Aminotransferase (ALT/SGPT) 15 0-55 U/L Alkaline Phosphatase 83 40-136 U/L Total Protein 7.1 6.4-8.2 GM/DL Albumin 4.1 3.2-4.5 GM/DL My Orders Orders - GUILLERMINA PRICE Ua Culture If Indicated (07/28/20 21:35) Cbc With Automated Diff (07/28/20 21:35) Comprehensive Metabolic Panel (07/28/20 21:35) Fentanyl Inj (Sublimaze Injection) (07/28/20 21:45) Ed Iv/Invasive Line Start (07/28/20 21:35) Ns Iv 1000 Ml (Sodium Chloride 0.9%) (07/28/20 21:45) Post Void Residual Assessment (07/28/20 21:42) Morphine Injection (Morphine Injection (07/28/20 22:14) Ketorolac Injection (Toradol Injection) (07/28/20 22:30) Ceftriaxone For Iv Use (Rocephin For I (07/28/20 22:30) Medications Given in ED Current Medications Medications Dose Ordered Sig/Dominic Route Start Time Stop Time Status Last Admin Dose Admin Ceftriaxone Sodium 1000 mg/ Sterile Water 10 ml @ 200 mls/hr ONCE ONCE IV 07/28/20 22:30 07/28/20 22:32 07/28/20 22:29 200 MLS/HR Fentanyl Citrate 50 mcg ONCE ONCE IVP 07/28/20 21:45 07/28/20 21:46 DC 07/28/20 21:44 50 MCG Ketorolac Tromethamine 30 mg ONCE ONCE IVP 07/28/20 22:30 07/28/20 22:31 07/28/20 22:29 30 MG Vital Signs/I&O 07/28/20 21:31 Temp 35.4 Pulse 55 Resp 18 B/P (MAP) 159/99 (119) Pulse Ox 95 O2 Delivery Room Air Capillary Refill : Less Than 3 Seconds Blood Pressure Mean: 119 Progress Note : Time: 21:41 Progress Note 50 mcg of fentanyl and some IV fluids. He was able to urinate a small amount so we will strain that and send off for a urinalysis. We will also do a postvoid residual. Consults Consults : Consulting Physician: NATALIYA GARCIA MD Consults Notes Discussed the case with Dr. Garcia who is familiar with him since he just put the stent in this afternoon. He is advises that it took quite a bit of fentanyl, ketamine and Toradol to get his pain under control this morning. He recommends we give him some Rocephin, Toradol, [place] and reassurance. Departure Impression Primary Impression: Kidney stones Additional Impression: History of ureter stent Disposition: 01 HOME, SELF-CARE Condition: Stable Departure-Patient Inst. Decision time for Depature: 22:25 Referrals: TARIQ SABILLON MD (PCP/Family) Primary Care Physician NATALIYA GARCIA MD Patient Instructions: Kidney Stones (DC), How to Strain Your Urine Add. Discharge Instructions: Drink plenty of fluids. Hydrocodone 1 tablet every 4 hours as necessary for severe, intractable pain. Ibuprofen 800 mg every 8 hours as necessary for pain. Warm heating pads can be helpful for pain. Take your medicines as prescribed. Follow-up with Dr. Garcia at your scheduled appointment. Ondansetron/Zofran 1 tablet under the tongue every 6 hours for nausea or vomiting. Hydrocodone will cause drowsiness and may cause constipation. Dulcolax, MiraLAX, Colace should all be considered used daily as needed for constipation All discharge instructions reviewed with patient and/or family. Voiced understanding. Scripts Ondansetron (Ondansetron Odt) 4 Mg Tab.rapdis 4 MG PO Q6H PRN for NAUSEA/VOMITING, #8 TAB 0 Refills Prov: GUILLERMINA PRICE 07/28/20 Hydrocodone/Acetaminophen (Hydrocodone-Acetamin 5-325 mg) 1 Each Tablet 1 TAB PO Q4H PRN for PAIN-MODERATE (5-7) for 5 Days, #22 TAB 0 Refills Prov: GUILLERMINA PRICE 07/28/20 Copy Copies To 1: NATALIYA GARCIA MD, TITUS J July 28, 2020 21:42
[2020-07-28] MEDS ORDERED: NS IV 1000 ML 1,000 ML IV SCH (21:45)
[2020-07-28] MEDS ORDERED: fentaNYL INJ 100 MCG/2 ML AMP IVP ONE (21:45)
[2020-07-28 21:48] LABS: BASOPHILS % (AUTO) 0 % (0-10); EOSINOPHILS % (AUTO) 0 % (0-10); HEMATOCRIT 41 % (40-54); HEMOGLOBIN 13.6 g/dL (13.3-17.7); LYMPHOCYTES # (AUTO) 0.9 10^3/uL (1.0-4.0); LYMPHOCYTES % (AUTO) 11 % (12-44); MEAN CORPUSCULAR HEMOGLOBIN 31 pg (25-34); MEAN CORPUSCULAR HGB CONC 34 g/dL (32-36); MEAN CORPUSCULAR VOLUME 93 fL (80-99); MEAN PLATELET VOLUME 9.8 fL (9.0-12.2); MONOCYTES # (AUTO) 0.3 10^3/uL (0.0-1.0); MONOCYTES % (AUTO) 4 % (0-12); NEUTROPHILS # (AUTO) 7.1 10^3/uL (1.8-7.8); NEUTROPHILS % (AUTO) 84 % (42-75); PLATELET COUNT 227 10^3/uL (130-400); WHITE BLOOD COUNT 8.4 10^3/uL (4.3-11.0)
[2020-07-28 21:50] LABS: BILIRUBIN,URINE NEGATIVE (NEGATIVE); CLARITY,URINE CLEAR; COLOR,URINE YELLOW; GLUCOSE, URINE (UA) NEGATIVE (NEGATIVE); KETONES,URINE NEGATIVE (NEGATIVE); LEUKOCYTE ESTERASE ,URINE TRACE (NEGATIVE); NITRITE,URINE NEGATIVE (NEGATIVE); PROTEIN,URINE 1+ (NEGATIVE)
[2020-07-28 21:58] LABS: BACTERIA,URINE NEGATIVE /HPF; RBC,URINE >100 /HPF; SQUAMOUS EPITHELIAL CELL,UR RARE /HPF; WBC,URINE 0-2 /HPF
[2020-07-28 22:08] LABS: ALANINE AMINOTRANSFERASE 15 U/L (0-55); ALBUMIN 4.1 GM/DL (3.2-4.5); ALKALINE PHOSPHATASE 83 U/L (40-136); BILIRUBIN,TOTAL 0.4 MG/DL (0.1-1.0); BUN/CREATININE RATIO 18; CALCIUM 9.4 MG/DL (8.5-10.1); CARBON DIOXIDE 21 MMOL/L (21-32); CHLORIDE 105 MMOL/L (98-107); CREATININE SERUM 1.14 MG/DL (0.60-1.30); GFR ESTIMATED > 60; GLUCOSE 120 MG/DL (70-105); POTASSIUM 4.2 MMOL/L (3.6-5.0); SODIUM 136 MMOL/L (135-145); TOTAL PROTEIN 7.1 GM/DL (6.4-8.2)
[2020-07-28] MEDS ORDERED: morphine INJ 10 MG/ML 1ML (SYR OR VIAL) IVP STA (22:14)
[2020-07-28] MEDS ORDERED: cefTRIAXone FOR IV USE 1,000 MG in WATER (STERILE) FOR INJECTION 10 ML IV ONE (22:30)
[2020-07-28] MEDS ORDERED: KETOROLAC 30 MG/ML VIAL IVP ONE (22:30)
[2020-07-28] MEDS ORDERED: ACHD5005 PO (22:34)
[2020-07-28] MEDS ORDERED: ONDA4TAB11 PO (22:34)
[2020-07-28 22:45] VITALS: BP 147/97
== END 2020-07-28 22:45 | disposition home or self-care (01) ==
LOC: EDUNIT# 21:26 → ER 21:27
DX: N20.0 Calculus of kidney (principal); I10 Essential (primary) hypertension; K21.9 Gastro-esophageal reflux disease without esophagitis; Z87.891 Personal history of nicotine dependence; Z96.0 Presence of urogenital implants; Z98.890 Other specified postprocedural states; Z79.899 Other long term (current) drug therapy
CPT/HCPCS: 36415; 80053; 81000; 85025

== ENCOUNTER 2020-07-30 18:59 | Inpatient (IN) | payer OTHER ==
[~2020-07-30] VITALS: Ht 190.5 cm; Wt 103.2 kg
[~2020-07-30 18:59] MED LIST changes: +ACHD5005 PO; +ONDA4TAB11 PO
[2020-07-30] MEDS ORDERED: NS IV 1000 ML 1,000 ML IV SCH (19:15)
[2020-07-30] MEDS ORDERED: KETOROLAC 30 MG/ML VIAL IVP STA (19:15)
[2020-07-30] MEDS ORDERED: morphine INJ 10 MG/ML 1ML (SYR OR VIAL) IVP ONE (19:15)
--- NOTE | 2020-07-30 19:23 | ED GU-Male ---
General Chief Complaint: Abdominal/GI Problems Stated Complaint: RIGHT FLANK PAIN Source: patient, spouse History of Present Illness Date Seen by Provider: July 30, 2020 Time Seen by Provider: 19:09 Initial Comments PT ARRIVES VIA POV FROM HOME C/O ONGOING RIGHT FLANK PAIN FROM KIDNEY STONE HAS BEEN TO ER MULTIPLE TIMES THIS WEEK FOR THIS PROBLEM HAD LITHOTRIPSY ON Friday07/25/[address] GARCIA, THEN HAD URETERAL STENTS PLACED BY HIM ON Friday07/28/20 PT HAS HAD CONTINUED RIGHT FLANK PAIN WITHOUT RELIEF TOOK HYDROCODONE X 1 TODAY AT 1530 AND IBUPROFEN 400 MG PO AT THAT TIME WELL NO NAUSEA/VOMITING NO FEVER/SWEATS/CHILLS. HAD BLOOD IN HIS URINE TODAY PT HAD LEFT KIDNEY STONE LITHOTRIPSY 2 WEEKS PRIOR TO THE RIGHT SIDE LITHOTRIPSY ON 07/11/20. HE HAD PREVIOUSLY HAD A LEFT URETERAL STENT PLACED, AND IT WAS REMOVED AT THAT TIME WITH CYSTOSCOPY ON THAT SAME DATE. PCP: DR. SABILLON UROLOGIST: DR. GARCIA Allergies and Home Medications Allergies Coded Allergies: No Known Drug Allergies (Unverified , 07/24/20) Home Medications Amlodipine Besylate/Benazepril 1 Each Capsule, 1 EACH PO DAILY, (Reported) PT TAKES DAILY MEDICATION AT 1500 Last Action: Reviewed Aspirin 81 Mg Tab.chew, 81 MG PO DAILY, (Reported) PT TAKES DAILY MEDICATION AT 1500 Last Action: Reviewed Bupropion HCl 150 Mg Tab.er.24h, 150 MG PO DAILY, (Reported) PT TAKES DAILY MEDICATION AT 1500 Last Action: Reviewed Cholecalciferol (Vitamin D3) 50 Mcg Tablet, 50 MCG PO DAILY, (Reported) PT TAKES DAILY MEDICATION AT 1500 Last Action: Reviewed Citalopram Hydrobromide 10 Mg Tablet, 10 MG PO DAILY, (Reported) PT TAKES DAILY MEDICATION AT 1500 Last Action: Reviewed Citalopram Hydrobromide 20 Mg Tablet, 20 MG PO DAILY, (Reported) PT TAKES DAILY MEDICATION AT 1500 Last Action: Reviewed Gabapentin 300 Mg Capsule, 900 MG PO HS, (Reported) PT TAKES MEDICATION BEFORE BEDTIME Last Action: Reviewed Hydrocodone/Acetaminophen 1 Each Tablet, 1 TAB PO Q4H PRN for PAIN-MODERATE (5- 7), (Reported) Last Action: Reviewed Lutein 20 Mg Capsule, 20 MG PO DAILY, (Reported) PT TAKES DAILY MEDICATION AT 1500 Last Action: Reviewed Multivit-Min/FA/Lycopen/Lutein 1 Each Tablet, 1 EACH PO DAILY, (Reported) PT TAKES DAILY MEDICATION AT 1500 Last Action: Reviewed Nitrofurantoin Monohyd/M-Cryst 100 Mg Capsule, 1 TAB PO BID WITH MEALS Prescribed by: LEFTY LANDERS on 07/25/20 1230 Last Action: Reviewed Ondansetron 4 Mg Tab.rapdis, 4 MG PO Q6H PRN for NAUSEA/VOMITING Prescribed by: GUILLERMINA PRICE on 07/28/20 2234 Last Action: Reviewed Pantoprazole Sodium 40 Mg Tablet.dr, 40 MG PO DAILY, (Reported) PT TAKES DAILY MEDICATION AT 1500 Last Action: Reviewed Primidone 50 Mg Tablet, 100 MG PO DAILY, (Reported) PT TAKES DAILY MEDICATION AT 1500 Last Action: Reviewed Tamsulosin HCl 0.4 Mg Cap, 0.4 MG PO DAILY Prescribed by: BENITA FERNANDEZ on 07/11/20 1025 Last Action: Reviewed Thiamine HCl 100 Mg Tablet, 100 MG PO DAILY, (Reported) PT TAKES DAILY MEDICATION AT 1500 Last Action: Reviewed Tramadol HCl 50 Mg Tablet, 50-100 MG PO Q4H PRN for PAIN-MODERATE (5-7) Prescribed by: LEFTY LANDERS on 07/25/20 1234 Last Action: Reviewed Vitamin B Complex 100 No.2 100 Mg Tablet.er, 100 MG PO DAILY, (Reported) PT TAKES DAILY MEDICATION AT 1500 Last Action: Reviewed Patient Home Medication List Home Medication List Reviewed: Yes Review of Systems Review of Systems Constitutional: no symptoms reported; No chills, No diaphoresis, No fever Respiratory: no symptoms reported Cardiovascular: no symptoms reported Gastrointestinal: see HPI Genitourinary: see HPI, flank pain, hematuria Musculoskeletal: see HPI, back pain Skin: no symptoms reported Psychiatric/Neurological: No Symptoms Reported Endocrine: No Symptoms Reported Hematologic/Lymphatic: No Symptoms Reported Past Thkqjtg-Xeqtxz-Vpbnhw Hx Past Med/Social Hx: Reviewed and Corrections made Patient Social History Type Used: Cigars Former Smoker, Quit: Mar 15, 2017 Recent Hopitalizations: No Immunizations Up To Date Tetanus Booster (TDap): Less than 5yrs PED Vaccines UTD: Yes Date of Pneumonia Vaccine: July 24, 2002 Date of Influenza Vaccine: Dec 15, 2020 Seasonal Allergies Seasonal Allergies: No Past Medical History Surgeries: Yes (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, R ing hernia, R breast lumpectomy, ESWL, ) Abdominal, Adenoidectomy, Breast, Eye Surgery, Orthopedic, Renal, Tonsillectomy Respiratory: No Currently Using CPAP: No Currently Using BIPAP: No Cardiac: Yes Hypertension Neurological: Yes (bells palsey, tremors) Genitourinary: Yes (ESWL; URETERAL STENTS) Kidney Stones Gastrointestinal: Yes Gastroesophageal Reflux Musculoskeletal: No Endocrine: No HEENT: Yes (hx of L eye detached retina) Cancer: No Psychosocial: No Integumentary: No Blood Disorders: No Family Medical History No Pertinent Family Hx ADDITIONAL PAST SURGERIES: -LEFT URETERAL STENT -CYSTOSCOPIES -07/11/20--CYSTOSCOPY, REMOVAL OF LEFT URETERAL STENT AND LITHOTRIPSY ON LEFT, BY DR. GARCIA -07/25/20--LITHOTRIPSY OF RIGHT KIDNEY STONE BY DR. GARCIA -07/28/20--RIGHT URETERAL STENT BY DR. GARCIA Physical Exam Vital Signs Capillary Refill : Height, Weight, BMI Height: '" Weight: lbs. oz. kg; 28.00 BMI Method: General Appearance: WD/WN, no apparent distress (BUT LOOKS UNCOMFORTABLE, HOLDING RIGHT FLANK) Cardiovascular: regular rate, rhythm, no murmur Respiratory: normal breath sounds Gastrointestinal: soft Back: CVA tenderness (R) Extremities: normal inspection Neurologic/Psychiatric: no motor/sensory deficits, alert, oriented x 3 Skin: normal color, warm/dry; No rash Progress/Results/Core Measures Suspected Sepsis SIRS Temperature: Pulse: Respiratory Rate: Laboratory Tests 07/30/20 19:22: White Blood Count 9.1 Blood Pressure / Mean: Laboratory Tests 07/30/20 19:22: Creatinine 1.28, Platelet Count 193, Total Bilirubin 0.6 Results/Orders Lab Results Laboratory Tests Test 07/30/20 19:22 07/30/20 19:33 Range/Units White Blood Count 9.1 4.3-11.0 10^3/uL Red Blood Count 4.13 L 4.30-5.52 10^6/uL Hemoglobin 13.0 L 13.3-17.7 g/dL Hematocrit 39 L 40-54 % Mean Corpuscular Volume 94 80-99 fL Mean Corpuscular Hemoglobin 32 25-34 pg Mean Corpuscular Hemoglobin Concent 34 32-36 g/dL Red Cell Distribution Width 14.5 10.0-14.5 % Platelet Count 193 130-400 10^3/uL Mean Platelet Volume 10.5 9.0-12.2 fL Immature Granulocyte % (Auto) 0 % Neutrophils (%) (Auto) 76 H 42-75 % Lymphocytes (%) (Auto) 17 12-44 % Monocytes (%) (Auto) 5 0-12 % Eosinophils (%) (Auto) 1 0-10 % Basophils (%) (Auto) 1 0-10 % Neutrophils # (Auto) 7.0 1.8-7.8 10^3/uL Lymphocytes # (Auto) 1.6 1.0-4.0 10^3/uL Monocytes # (Auto) 0.4 0.0-1.0 10^3/uL Eosinophils # (Auto) 0.1 0.0-0.3 10^3/uL Basophils # (Auto) 0.1 0.0-0.1 10^3/uL Immature Granulocyte # (Auto) 0.0 0.0-0.1 10^3/uL Sodium Level 139 135-145 MMOL/L Potassium Level 4.0 3.6-5.0 MMOL/L Chloride Level 106 98-107 MMOL/L Carbon Dioxide Level 23 21-32 MMOL/L Anion Gap 10 5-14 MMOL/L Blood Urea Nitrogen 14 7-18 MG/DL Creatinine 1.28 0.60-1.30 MG/DL Estimat Glomerular Filtration Rate 57 BUN/Creatinine Ratio 11 Glucose Level 99 70-105 MG/DL Calcium Level 8.8 8.5-10.1 MG/DL Corrected Calcium 8.9 8.5-10.1 MG/DL Total Bilirubin 0.6 0.1-1.0 MG/DL Aspartate Amino Transf (AST/SGOT) 15 5-34 U/L Alanine Aminotransferase (ALT/SGPT) 13 0-55 U/L Alkaline Phosphatase 79 40-136 U/L Total Protein 6.9 6.4-8.2 GM/DL Albumin 3.9 3.2-4.5 GM/DL Urine Color YELLOW Urine Clarity CLEAR Urine pH 6.0 5-9 Urine Specific [place] 1.015 L 1.016-1.022 Urine Protein 1+ H NEGATIVE Urine Glucose (UA) NEGATIVE NEGATIVE Urine Ketones NEGATIVE NEGATIVE Urine Nitrite NEGATIVE NEGATIVE Urine Bilirubin NEGATIVE NEGATIVE Urine Urobilinogen 0.2 < = 1.0 MG/DL Urine Leukocyte Esterase 1+ H NEGATIVE Urine RBC (Auto) 3+ H NEGATIVE Urine RBC TNTC H /HPF Urine WBC 5-10 H /HPF Urine Crystals NONE /LPF Urine Bacteria MODERATE H /HPF Urine Casts NONE /LPF Urine Mucus NEGATIVE /LPF Urine Culture Indicated YES My Orders Orders - TARIQ LAL DO Ed Iv/Invasive Line Start (07/30/20 19:15) Abdomen/[place] (07/30/20 19:15) Cbc With Automated Diff (07/30/20 19:15) Comprehensive Metabolic Panel (07/30/20 19:15) Ua Culture If Indicated (07/30/20 19:15) Ed Iv/Invasive Line Start (07/30/20 19:15) Ns Iv 1000 Ml (Sodium Chloride 0.9%) (07/30/20 19:15) Ketorolac Injection (Toradol Injection) (07/30/20 19:15) Morphine Injection (Morphine Injection (07/30/20 19:15) Fentanyl Inj (Sublimaze Injection) (07/30/20 19:45) Urine Culture (07/30/20 19:33) Ceftriaxone For Iv Use (Rocephin For I (07/30/20 20:00) Medications Given in ED Current Medications Medications Dose Ordered Sig/Dominic Route Start Time Stop Time Status Last Admin Dose Admin Ceftriaxone Sodium 1000 mg/ Sterile Water 10 ml @ 200 mls/hr ONCE ONCE IV 07/30/20 20:00 07/30/20 20:02 DC 07/30/20 20:01 200 MLS/HR Fentanyl Citrate 50 mcg ONCE ONCE IVP 07/30/20 19:45 07/30/20 19:46 DC 07/30/20 19:55 50 MCG Vital Signs/I&O Capillary Refill : Progress Note : Progress Note GIVEN IV FLUIDS, TORADOL, FENTANYL AND MORPINE WITH SOME IMPROVEMENT IN PAIN NO DETERIORATION IN PT'S CONDITION DURING ER STAY Diagnostic Imaging Comments KUB--PER RADIOLOGIST REPORT AT 2012 FINDINGS: Interval placement of a right ureteral stent with the proximal aspect coiled overlying the expected location of the right renal pelvis with the distal aspect terminating overlying the expected location of the distal right ureter. 8 mm calcification adjacent to the proximal right ureteral stent is again identified, appearing similar to the prior examination. The visualized lung bases are clear. Gas and stool is present within the colon. No dilated loop of small bowel. No differential air-fluid level. No free air. Phleboliths within the left lower pelvis. [place] left curvature of the spine with scattered degenerative changes. No acute osseous abnormality. IMPRESSION: Interval placement of a right ureteral stent, as described above. Previously noted calculus within the proximal right ureter is again identified, appearing similar. Reviewed: Reviewed by Me Departure Communication (Admissions) 1955--SPOKE WITH DR. PIEDRA, ACCEPTS PT FOR ADMIT. 2011--SPOKE WITH DR. GARCIA. WILL SEE PT IN CONSULT.NO ADDITIONAL RECOMMENDATIONS AT THIS TIME Impression Primary Impression: Right ureteral stone Additional Impressions: Intractable pain UTI (urinary tract infection) Disposition: ADMITTED INPATIENT Condition: Improved Admissions Decision to Admit Reason: Admit from ER (General) Decision to Admit/Date: July 30, 2020 Time/Decision to Admit Time: 20:00 Departure-Patient Inst. Referrals: TARIQ SABILLON MD (PCP/Family) Primary Care Physician TARIQ LAL DO July 30, 2020 19:22
[2020-07-30 19:35] LABS: BASOPHILS # (AUTO) 0.1 10^3/uL (0.0-0.1); BASOPHILS % (AUTO) 1 % (0-10); EOSINOPHILS # (AUTO) 0.1 10^3/uL (0.0-0.3); EOSINOPHILS % (AUTO) 1 % (0-10); HEMATOCRIT 39 % (40-54); LYMPHOCYTES # (AUTO) 1.6 10^3/uL (1.0-4.0); LYMPHOCYTES % (AUTO) 17 % (12-44); MEAN CORPUSCULAR HEMOGLOBIN 32 pg (25-34); MEAN CORPUSCULAR HGB CONC 34 g/dL (32-36); MEAN CORPUSCULAR VOLUME 94 fL (80-99); MEAN PLATELET VOLUME 10.5 fL (9.0-12.2); MONOCYTES # (AUTO) 0.4 10^3/uL (0.0-1.0); MONOCYTES % (AUTO) 5 % (0-12); NEUTROPHILS % (AUTO) 76 % (42-75); PLATELET COUNT 193 10^3/uL (130-400); WHITE BLOOD COUNT 9.1 10^3/uL (4.3-11.0)
[2020-07-30 19:40] LABS: BILIRUBIN,URINE NEGATIVE (NEGATIVE); CLARITY,URINE CLEAR; COLOR,URINE YELLOW; GLUCOSE, URINE (UA) NEGATIVE (NEGATIVE); KETONES,URINE NEGATIVE (NEGATIVE); LEUKOCYTE ESTERASE ,URINE 1+ (NEGATIVE); NITRITE,URINE NEGATIVE (NEGATIVE); PROTEIN,URINE 1+ (NEGATIVE)
[2020-07-30] MEDS ORDERED: fentaNYL INJ 100 MCG/2 ML AMP IVP ONE (19:45)
[2020-07-30 19:50] LABS: RBC,URINE TNTC /HPF
[2020-07-30 19:51] LABS: BACTERIA,URINE MODERATE /HPF
[2020-07-30] MEDS ORDERED: cefTRIAXone FOR IV USE 1,000 MG in WATER (STERILE) FOR INJECTION 10 ML IV ONE (20:00)
[2020-07-30 20:04] LABS: ALBUMIN 3.9 GM/DL (3.2-4.5); BILIRUBIN,TOTAL 0.6 MG/DL (0.1-1.0); CALCIUM 8.8 MG/DL (8.5-10.1); CREATININE SERUM 1.28 MG/DL (0.60-1.30); TOTAL PROTEIN 6.9 GM/DL (6.4-8.2)
--- NOTE | 2020-07-30 20:09 | Diagnostic Imaging Report ---
INDICATION: Abdominal pain. COMPARISON: 07/28/2020. TECHNIQUE: 2 radiographs of the right abdomen were obtained dated July 30, 2020. FINDINGS: Interval placement of a right ureteral stent with the proximal aspect coiled overlying the expected location of the right renal pelvis with the distal aspect terminating overlying the expected location of the distal right ureter. 8 mm calcification adjacent to the proximal right ureteral stent is again identified, appearing similar to the prior examination. The visualized lung bases are clear. Gas and stool is present within the colon. No dilated loop of small bowel. No differential air-fluid level. No free air. Phleboliths within the left lower pelvis. [place] left curvature of the spine with scattered degenerative changes. No acute osseous abnormality. IMPRESSION: Interval placement of a right ureteral stent, as described above. Previously noted calculus within the proximal right ureter is again identified, appearing similar. Dictated by: Dictated on workstation # [id number]
[2020-07-30 21:18] VITALS: BP 120/75
[2020-07-30] MEDS ORDERED: ONDANSETRON 4 MG/2 ML (SDV) Z0FRAN IVP PRN (21:30)
[2020-07-30] MEDS: NS IV 1000 ML 1,000 ML IV SCH (21:36)
[2020-07-30] MEDS: morphine INJ 4 MG/ML 1 ML (VIAL/SYRINGE) IVP PRN (22:27)
[2020-07-31 00:03] VITALS: BP 115/74
[2020-07-31] MEDS ORDERED: ASPI-999 PO (00:07)
[2020-07-31] MEDS ORDERED: ACHD5005 PO (00:11)
[2020-07-31] MEDS: KETOROLAC 30 MG/ML VIAL IVP SCH ×3 (02:00→13:26)
[2020-07-31] MEDS: fentaNYL INJ 100 MCG/2 ML AMP IVP PRN ×3 (03:15→13:27)
[2020-07-31 03:47] VITALS: BP 120/76
[2020-07-31 03:50] LABS: BASOPHILS % (AUTO) 1 % (0-10); EOSINOPHILS # (AUTO) 0.1 10^3/uL (0.0-0.3); EOSINOPHILS % (AUTO) 2 % (0-10); HEMATOCRIT 36 % (40-54); HEMOGLOBIN 11.6 g/dL (13.3-17.7); LYMPHOCYTES # (AUTO) 2.3 10^3/uL (1.0-4.0); LYMPHOCYTES % (AUTO) 37 % (12-44); MEAN CORPUSCULAR HEMOGLOBIN 31 pg (25-34); MEAN CORPUSCULAR HGB CONC 32 g/dL (32-36); MEAN CORPUSCULAR VOLUME 96 fL (80-99); MEAN PLATELET VOLUME 10.1 fL (9.0-12.2); MONOCYTES # (AUTO) 0.5 10^3/uL (0.0-1.0); MONOCYTES % (AUTO) 8 % (0-12); NEUTROPHILS # (AUTO) 3.3 10^3/uL (1.8-7.8); NEUTROPHILS % (AUTO) 52 % (42-75); PLATELET COUNT 170 10^3/uL (130-400); WHITE BLOOD COUNT 6.3 10^3/uL (4.3-11.0)
[2020-07-31] MEDS: NS IV 1000 ML 1,000 ML IV SCH ×3 (03:50→16:49)
[2020-07-31 04:11] LABS: ALANINE AMINOTRANSFERASE 10 U/L (0-55); ALBUMIN 3.4 GM/DL (3.2-4.5); ALKALINE PHOSPHATASE 65 U/L (40-136); BILIRUBIN,TOTAL 0.4 MG/DL (0.1-1.0); BUN/CREATININE RATIO 14; CALCIUM 8.3 MG/DL (8.5-10.1); CARBON DIOXIDE 25 MMOL/L (21-32); CHLORIDE 109 MMOL/L (98-107); CREATININE SERUM 0.95 MG/DL (0.60-1.30); GFR ESTIMATED > 60; GLUCOSE 93 MG/DL (70-105); POTASSIUM 3.6 MMOL/L (3.6-5.0); SODIUM 142 MMOL/L (135-145); TOTAL PROTEIN 5.9 GM/DL (6.4-8.2)
[2020-07-31] MEDS: morphine INJ 4 MG/ML 1 ML (VIAL/SYRINGE) IVP PRN ×5 (05:28→17:17)
--- NOTE | 2020-07-31 07:12 | History & Physical ---
History of Present Illness HPI/Chief Complaint Chief complaint: Renal colic with complicated kidney stone with stent displacement History of present illness: This is a 65-year-old white male clinic patient of Dr. Paris and urology Dr. Garcia who had a left renal stone on the left status post lithotripsy on July 11 with good resolution but had lithotripsy on the right on 07/25 that required stent placement but patient continued to have severe pain admitted to the hospital last night having a very low pain tolerance noted but now requiring higher level of transfer to because of the need for a flexible cystoscopy device that we do not have in order to recover the stent and manage the kidney stone. He is currently stable no evidence of any sepsis and pain is his only complaint. Source: patient, family, RN/MD, old records Exam Limitations: no limitations Date Seen 07/31/20 Time Seen by a Provider: 10:00 Attending Physician Bronwyn Oh MD PCP Juli Paris MD Referring Physician Date of Admission July 30, 2020 at 20:00 Home Medications & Allergies Home Medications Reviewed patient Home Medication Reconciliation performed by pharmacy medication reconciliations remanufacturing technician and/or nursing. Patients Allergies have been reviewed. Allergies Allergies Coded Allergies No Known Drug Allergies (Unverified07/24/20) Past Khivsfj-Eimbkq-Ymxpjx Hx Past Med/Social Hx: Reviewed Nursing Past Med/Soc Hx, Reviewed and Corrections made Patient Social History Marrital Status: Employed/Student: employed Alcohol Use: Denies Use Recreational Drug Use: No Smoking Status: Former Smoker Former Smoker, Quit: Mar 15, 2017 Type Used: Cigars Recent Foreign Travel: No Contact w/other who traveled: No Recent Hopitalizations: No Recent Infectious Disease Expo: No Immunizations Up To Date Tetanus Booster (TDap): Less than 5yrs Pediatric: Yes Date of Pneumonia Vaccine: July 24, 2002 Date of Influenza Vaccine: Dec 16, 2019 Seasonal Allergies Seasonal Allergies: No Past Medical History Surgeries: Abdominal, Adenoidectomy, Breast, Eye Surgery, Orthopedic, Renal, Tonsillectomy Currently Using CPAP: No Currently Using BIPAP: No Cardiac: Hypertension Genitourinary: Kidney Stones Gastrointestinal: Gastroesophageal Reflux History of Blood Disorders: No Family History No Pertinent Family Hx ADDITIONAL PAST SURGERIES: -LEFT URETERAL STENT -CYSTOSCOPIES -07/11/20--CYSTOSCOPY, REMOVAL OF LEFT URETERAL STENT AND LITHOTRIPSY ON LEFT, BY DR. GARCIA -07/25/20--LITHOTRIPSY OF RIGHT KIDNEY STONE BY DR. GARCIA -07/28/20--RIGHT URETERAL STENT BY DR. GARCIA Review of Systems Constitutional: see HPI Genitourinary: decreased output, frequency Musculoskeletal: back pain Physical Exam Physical Exam Vital Signs Vital Signs - First Documented 07/30/20 07/30/20 20:35 21:10 Temp 36.8 Pulse 65 Resp 20 B/P (MAP) 146/105 (119) Pulse Ox 90 O2 Delivery Room Air Capillary Refill : Less Than 3 Seconds Height, Weight, BMI Height: '" Weight: lbs. oz. kg; 28.43 BMI Method: General Appearance: No Apparent Distress, WD/WN Eyes: Bilateral Eye Normal Inspection, Bilateral Eye PERRL HEENT: PERRL/EOMI, Normal ENT Inspection, Pharynx Normal Neck: Full Range of Motion, Normal Inspection, Non Tender, Supple, Carotid Bruit Respiratory: Chest Non Tender, Lungs Clear, Normal Breath Sounds, No Accessory Muscle Use, No Respiratory Distress Cardiovascular: Regular Rate, Rhythm, No Edema, No Gallop, No JVD, No Murmur, Normal Peripheral Pulses Gastrointestinal: Normal Bowel Sounds, No Organomegaly, No Pulsatile Mass, Non Tender, Soft Back: Normal Inspection, No CVA Tenderness, No Vertebral Tenderness Extremity: Normal Capillary Refill, Normal Inspection, Normal Range of Motion, Non Tender, No Calf Tenderness, No Pedal Edema Neurologic/Psychiatric: Alert, Oriented x3, No Motor/Sensory Deficits, Normal Mood/Affect Skin: Normal Color, Warm/Dry Lymphatic: No Adenopathy Results Results/Procedures Labs Laboratory Tests 07/30/20 19:22 07/31/20 03:40 Patient resulted labs reviewed. Assessment/Plan Admission Diagnosis Assessment: Renal colic Complicated kidney stone with stent displacement in need of flexible cystoscopy device at higher level of care BPH Depression Hypertension Osteoarthritis Plan: Put in process for transfer to [facility] Dr. Garcia Monitor closely Admission Status: Inpatient Order (span 2 midnights) Reason for Inpatient Admission: complicated stent Diagnosis/Problems Diagnosis/Problems (1) Right ureteral stone Status: Acute (2) Intractable pain Status: Acute (3) UTI (urinary tract infection) (4) History of ureter stent Status: Acute (5) Kidney stones Status: Acute (6) Right renal stone GLENDA SENA DO July 31, 2020 07:11
[2020-07-31 07:42] VITALS: BP 135/83
[2020-07-31] MEDS ORDERED: ONDANSETRON 4 MG (ZOFRAN) ORAL DISSOLVE TAB PO PRN (10:00)
[2020-07-31] MEDS ORDERED: CEFT1FRO2 IV (10:59)
[2020-07-31] MEDS ORDERED: MORP4CAR IVP (10:59)
--- NOTE | 2020-07-31 11:01 | CONSULTATION REPORT ---
DATE OF SERVICE: 07/31/2020 ATTENDING PHYSICIAN: Dr. Salinas. SUMMARY: A 65-year-old white man, who started his journey with urolithiasis first on 07/07 when he was admitted in [facility] with a left distal ureteral stone. He had an attempted semirigid ureteroscope, which was unsuccessful because of the prostate fishhook deformity of the ureter as well as a tight ureteral orifice, which I could not dilate properly to accommodate the semi-rigid ureteroscope, so I went ahead and put a stent in him and on 07/11, he underwent a successful left ESWL and removal of a stent. On 07/25, he underwent a successful right ESWL for a right renal stone that he wished to be blasted. On the , the stone fragments had moved down to the proximal ureter, so I took him to surgery and pushed it back into the kidney and placed a stent. The patient continued to have severe pain, needing pain management in the hospital. He has a very low pain threshold and tolerance. He was admitted yesterday after he came twice to the ER for pain control. The stone now is down to the proximal right ureter again and the distal end of the stent has migrated proximally. IMPRESSION: Right proximal ureteral stone with intractable pain. RECOMMENDATION: I had a lengthy discussion with the patient and his . I recommended again to him to have a flexible ureteroscopy not only for the laser lithotripsy of the stone, but also to remove the stent. Since I could not put the semirigid ureteroscope into his ureter, we do not carry here for flexible ureteroscopy, so I gave him the options and he elected to go to [facility] and have the stone taken care of. He rejected a [facility] because he was concerned about the distance and the pain management during that distance and transfer, so the recommendation stands at transfer to [facility] when feasible. Job ID: [id number] DocumentID: [id number] Dictated Date: 07/31/2020 09:40:47 Rate Supervisor Date: 07/31/2020 11:00:44 Dictated By: NATALIYA GARCIA MD
[2020-07-31 11:35] VITALS: BP 123/74
[2020-07-31] MEDS: HYDROcodone/APAP 5 MG/325 MG (LORTAB) TAB PO PRN ×2 (12:26→17:19)
[2020-07-31] MEDS ORDERED: buPROPion SR 150 MG (WELLBUTRIN SR) TAB PO SCH (15:00)
[2020-07-31] MEDS ORDERED: PANTOPRAZOLE 40 MG (PROTONIX) TAB PO SCH (15:00)
[2020-07-31] MEDS ORDERED: VITAMIN D3 25 MCG (1,000 UNITS) TABLET PO SCH (15:00)
[2020-07-31] MEDS ORDERED: PRIMIDONE 50 MG TAB (MYSOLINE) PO SCH (15:00)
[2020-07-31] MEDS ORDERED: FOLIC ACID 1 MG TAB PO SCH (15:00)
[2020-07-31] MEDS ORDERED: amLODIPine 5 MG (NORVASC) TAB PO SCH (15:00)
[2020-07-31] MEDS ORDERED: MULTIVITAMINS LIQUID 15 ML UDC PO SCH (15:00)
[2020-07-31] MEDS ORDERED: lisINopril 20 MG (PRINIVIL) TABLET PO SCH (15:00)
[2020-07-31] MEDS ORDERED: THIAMINE 100 MG (VITAMIN B-1) TAB PO SCH (15:00)
[2020-07-31 15:33] VITALS: BP 122/74
[2020-07-31 17:25] VITALS: BP 122/74
[2020-07-31] MEDS ORDERED: TAMSULOSIN 0.4 MG (FLOMAX) CAP PO SCH (18:00)
[2020-07-31] MEDS ORDERED: cefTRIAXone 1,000 MG/SWFI 10 ML IV PUSH IV SCH ×2 (20:00)
[2020-07-31] MEDS ORDERED: MAGNESIUM OXIDE (MAG-OX)400 MG TAB PO SCH (21:00)
[2020-07-31] MEDS ORDERED: GABAPENTIN 300 MG (NEURONTIN) CAP PO SCH (21:00)
--- NOTE | 2020-07-31 21:22 | Discharge Summary ---
Diagnosis/Chief Complaint Date of Admission July 30, 2020 at 20:00 Date of Discharge July 31, 2020 at 17:25 Discharge Date: July 31, 2020 Discharge Diagnosis Complicated kidney stone with renal colic requiring higher level of Urology care at Discharge Summary Discharge Physical Examination Allergies: Coded Allergies: No Known Drug Allergies (Unverified , 07/24/20) Vitals & I&Os Vital Signs Date Time Temp Pulse Resp B/P (MAP) Pulse Ox O2 Delivery O2 Flow Rate FiO2 07/31/20 17:25 36.4 58 16 122/74 93 Room Air General Appearance: Alert, Oriented X3, Cooperative Respiratory: Clear to Auscultation Hospital Course Was the Problem List Reviewed?: Yes See HPI Labs (last 24 hrs) Laboratory Tests 07/30/20 19:22: White Blood Count 9.1, Red Blood Count 4.13L, Hemoglobin 13.0L, Hematocrit 39L, Mean Corpuscular Volume 94, Mean Corpuscular Hemoglobin 32, Mean Corpuscular Hemoglobin Concent 34, Red Cell Distribution Width 14.5, Platelet Count 193, Mean Platelet Volume 10.5, Immature Granulocyte % (Auto) 0, Neutrophils (%) (Auto) 76H, Lymphocytes (%) (Auto) 17, Monocytes (%) (Auto) 5, Eosinophils (%) (Auto) 1, Basophils (%) (Auto) 1, Neutrophils # (Auto) 7.0, Lymphocytes # (Auto) 1.6, Monocytes # (Auto) 0.4, Eosinophils # (Auto) 0.1, Basophils # (Auto) 0.1, Immature Granulocyte # (Auto) 0.0, Sodium Level 139, Potassium Level 4.0, Chloride Level 106, Carbon Dioxide Level 23, Anion Gap 10, Blood Urea Nitrogen 14, Creatinine 1.28, Estimat Glomerular Filtration Rate 57, BUN/Creatinine Ratio 11, Glucose Level 99, Calcium Level 8.8, Corrected Calcium 8.9, Total Bilirubin 0.6, Aspartate Amino Transf (AST/SGOT) 15, Alanine Aminotransferase (ALT/SGPT) 13, Alkaline Phosphatase 79, Total Protein 6.9, Albumin 3.9 07/30/20 19:33: Urine Color YELLOW, Urine Clarity CLEAR, Urine pH 6.0, Urine Specific [place] 1.015L, Urine Protein 1+H, Urine Glucose (UA) NEGATIVE, Urine Ketones NEGATIVE, Urine Nitrite NEGATIVE, Urine Bilirubin NEGATIVE, Urine Urobilinogen 0.2, Urine Leukocyte Esterase 1+H, Urine RBC (Auto) 3+H, Urine RBC TNTCH, Urine WBC 5-10H, Urine Crystals NONE, Urine Bacteria MODERATEH, Urine Casts NONE, Urine Mucus NEGATIVE, Urine Culture Indicated YES 07/31/20 03:40: White Blood Count 6.3, Red Blood Count 3.75L, Hemoglobin 11.6L, Hematocrit 36L, Mean Corpuscular Volume 96, Mean Corpuscular Hemoglobin 31, Mean Corpuscular Hemoglobin Concent 32, Red Cell Distribution Width 14.4, Platelet Count 170, Mean Platelet Volume 10.1, Immature Granulocyte % (Auto) 0, Neutrophils (%) (Auto) 52, Lymphocytes (%) (Auto) 37, Monocytes (%) (Auto) 8, Eosinophils (%) (Auto) 2, Basophils (%) (Auto) 1, Neutrophils # (Auto) 3.3, Lymphocytes # (Auto) 2.3, Monocytes # (Auto) 0.5, Eosinophils # (Auto) 0.1, Basophils # (Auto) 0.0, Immature Granulocyte # (Auto) 0.0, Sodium Level 142, Potassium Level 3.6, Chloride Level 109H, Carbon Dioxide Level 25, Anion Gap 8, Blood Urea Nitrogen 13, Creatinine 0.95, Estimat Glomerular Filtration Rate > 60, BUN/Creatinine Ratio 14, Glucose Level 93, Calcium Level 8.3L, Corrected Calcium 8.8, Total Bilirubin 0.4, Aspartate Amino Transf (AST/SGOT) 11, Alanine Aminotransferase (ALT/SGPT) 10, Alkaline Phosphatase 65, Total Protein 5.9L, Albumin 3.4 Microbiology 07/30/20 Urine Culture - Final, Complete NO GROWTH Pending Labs Microbiology Date/Time Source Procedure Growth Status 07/30/20 19:33 Urine Clean Catch Urine Culture - Final NO GROWTH Complete Laboratory Tests 07/30/20 19:22: White Blood Count 9.1, Red Blood Count 4.13, Hemoglobin 13.0, Hematocrit 39, Mean Corpuscular Volume 94, Mean Corpuscular Hemoglobin 32, Mean Corpuscular Hemoglobin Concent 34, Red Cell Distribution Width 14.5, Platelet Count 193, Mean Platelet Volume 10.5, Immature Granulocyte % (Auto) 0, Neutrophils (%) (Auto) 76, Lymphocytes (%) (Auto) 17, Monocytes (%) (Auto) 5, Eosinophils (%) (Auto) 1, Basophils (%) (Auto) 1, Neutrophils # (Auto) 7.0, Lymphocytes # (Auto) 1.6, Monocytes # (Auto) 0.4, Eosinophils # (Auto) 0.1, Basophils # (Auto) 0.1, Immature Granulocyte # (Auto) 0.0, Sodium Level 139, Potassium Level 4.0, Chloride Level 106, Carbon Dioxide Level 23, Anion Gap 10, Blood Urea Nitrogen 14, Creatinine 1.28, Estimat Glomerular Filtration Rate 57, BUN/Creatinine Ratio 11, Glucose Level 99, Calcium Level 8.8, Corrected Calcium 8.9, Total Bilirubin 0.6, Aspartate Amino Transf (AST/SGOT) 15, Alanine Aminotransferase (ALT/SGPT) 13, Alkaline Phosphatase 79, Total Protein 6.9, Albumin 3.9 07/30/20 19:33: Urine Color YELLOW, Urine Clarity CLEAR, Urine pH 6.0, Urine Specific [place] 1.015, Urine Protein 1+, Urine Glucose (UA) NEGATIVE, Urine Ketones NEGATIVE, Urine Nitrite NEGATIVE, Urine Bilirubin NEGATIVE, Urine Urobilinogen 0.2, Urine Leukocyte Esterase 1+, Urine RBC (Auto) 3+, Urine RBC TNTC, Urine WBC 5-10, Urine Crystals NONE, Urine Bacteria MODERATE, Urine Casts NONE, Urine Mucus NEGATIVE, Urine Culture Indicated YES 07/31/20 03:40: White Blood Count 6.3, Red Blood Count 3.75, Hemoglobin 11.6, Hematocrit 36, Mean Corpuscular Volume 96, Mean Corpuscular Hemoglobin 31, Mean Corpuscular Hemoglobin Concent 32, Red Cell Distribution Width 14.4, Platelet Count 170, Mean Platelet Volume 10.1, Immature Granulocyte % (Auto) 0, Neutrophils (%) (Auto) 52, Lymphocytes (%) (Auto) 37, Monocytes (%) (Auto) 8, Eosinophils (%) (Auto) 2, Basophils (%) (Auto) 1, Neutrophils # (Auto) 3.3, Lymphocytes # (Auto) 2.3, Monocytes # (Auto) 0.5, Eosinophils # (Auto) 0.1, Basophils # (Auto) 0.0, Immature Granulocyte # (Auto) 0.0, Sodium Level 142, Potassium Level 3.6, Chloride Level 109, Carbon Dioxide Level 25, Anion Gap 8, Blood Urea Nitrogen 13, Creatinine 0.95, Estimat Glomerular Filtration Rate > 60, BUN/Creatinine Ratio 14, Glucose Level 93, Calcium Level 8.3, Corrected Calcium 8.8, Total Bilirubin 0.4, Aspartate Amino Transf (AST/SGOT) 11, Alanine Aminotransferase (ALT/SGPT) 10, Alkaline Phosphatase 65, Total Protein 5.9, Albumin 3.4 Discharge Home Medications: Active Scripts Active Ceftriaxone 1 gm Piggyback (Ceftriaxone Na/Dextrose,Iso) 1 Gm/50 Ml Froz.piggy 1 Gm IV DAILY Morphine Sulfate 4 Mg/1 Ml Cartridge 4 Mg IVP Q2H PRN 4 Days Ondansetron Odt (Ondansetron) 4 Mg Tab.rapdis 4 Mg PO Q6H PRN Tramadol HCl 50 Mg Tablet 50-100 Mg PO Q4H PRN Flomax (Tamsulosin HCl) 0.4 Mg Cap 0.4 Mg PO DAILY 14 Days Reported Hydrocodone-Acetamin 5-325 mg (Hydrocodone/Acetaminophen) 1 Each Tablet 1 Tab PO Q4H PRN Vitamin D3 (Cholecalciferol (Vitamin D3)) 50 Mcg Tablet 50 Mcg PO DAILY PT TAKES DAILY MEDICATION AT 1500 B-100 Complex (Vitamin B Complex 100 No.2) 100 Mg Tablet.er 100 Mg PO DAILY PT TAKES DAILY MEDICATION AT 1500 B-1 (Thiamine HCl) 100 Mg Tablet 100 Mg PO DAILY PT TAKES DAILY MEDICATION AT 1500 Natural Lutein (Lutein) 20 Mg Capsule 20 Mg PO DAILY PT TAKES DAILY MEDICATION AT 1500 Men 50 Plus Multivitamin Tab (Multivit-Min/FA/Lycopen/Lutein) 1 Each Tablet 1 Each PO DAILY PT TAKES DAILY MEDICATION AT 1500 Lotrel 5-20 mg Capsule (Amlodipine Besylate/Benazepril) 1 Each Capsule 1 Each PO DAILY PT TAKES DAILY MEDICATION AT 1500 Pantoprazole Sodium 40 Mg Tablet.dr 40 Mg PO DAILY PT TAKES DAILY MEDICATION AT 1500 Neurontin (Gabapentin) 300 Mg Capsule 900 Mg PO HS PT TAKES MEDICATION BEFORE BEDTIME Mysoline (Primidone) 50 Mg Tablet 100 Mg PO DAILY PT TAKES DAILY MEDICATION AT 1500 Bupropion Xl (Bupropion HCl) 150 Mg Tab.er.24h 150 Mg PO DAILY PT TAKES DAILY MEDICATION AT 1500 Citalopram HBr (Citalopram Hydrobromide) 20 Mg Tablet 20 Mg PO DAILY PT TAKES DAILY MEDICATION AT 1500 Citalopram HBr (Citalopram Hydrobromide) 10 Mg Tablet 10 Mg PO DAILY PT TAKES DAILY MEDICATION AT 1500 Instructions to patient/family Please see electronic discharge instructions given to patient. Diagnosis/Problems Diagnosis/Problems (1) Right ureteral stone Status: Acute (2) Intractable pain Status: Acute (3) UTI (urinary tract infection) (4) History of ureter stent Status: Acute (5) Kidney stones Status: Acute (6) Right renal stone GLENDA SNEA DO July 31, 2020 21:22
[2020-08-01] MEDS ORDERED: [UNRECOGNIZED DRUG - OTHER] PO SCH (09:00)
[2020-08-01] MEDS ORDERED: LUTEIN 20 MG PO SCH (09:00)
[2020-08-01] MEDS ORDERED: [UNRECOGNIZED DRUG - REMARK] PO SCH (09:00)
[2020-08-01] MEDS ORDERED: TAMSULOSIN 0.4 MG (FLOMAX) CAP PO SCH (09:00)
== END 2020-07-31 17:25 | disposition short-term general hospital (02) | DRG 694 ==
LOC: EDUNIT# 18:59 → ER 19:03 → 4TH 20:00
PROVIDERS: ADMIT Family Medicine; ATTEND Internal Medicine
DX: N20.1 Calculus of ureter (principal); N39.0 Urinary tract infection, site not specified; N40.0 Benign prostatic hyperplasia without lower urinary tract symptoms; G51.0 Bell's palsy; I10 Essential (primary) hypertension; K21.9 Gastro-esophageal reflux disease without esophagitis; F32.9 Major depressive disorder, single episode, unspecified; Z87.891 Personal history of nicotine dependence; Z79.82 Long term (current) use of aspirin; Z79.891 Long term (current) use of opiate analgesic
CPT/HCPCS: 36415; 74018; 80053; 81000; 85025; 87088

== ENCOUNTER → 2020-08-16 | Outpatient (CLI) | payer OTHER ==
[~2020-08-16] MED LIST changes: +CEFT1FRO2 IV; +MORP4CAR IVP
--- NOTE | 2020-08-16 14:39 | Diagnostic Imaging Report ---
INDICATION: Right ureteral calculus follow-up KUB 2:31 PM There is mild scoliosis of the lumbar spine. Bowel gas pattern is normal. There are no radiopaque calculi seen. IMPRESSION: No acute abnormality seen in the abdomen. Dictated by: Dictated on workstation # [id number]
== END ==
LOC: RAD 14:02
PROVIDERS: ATTEND Urology
DX: N20.1 Calculus of ureter (principal)
CPT/HCPCS: 74018

== ENCOUNTER → 2020-11-22 | Outpatient (CLI) | payer OTHER ==
--- NOTE | 2020-11-22 14:39 | Diagnostic Imaging Report ---
INDICATION: History of bilateral kidney stones. COMPARISON: 08/16/2020. FINDINGS: Single frontal radiographic view of the abdomen was obtained. Small bowel loops are nondistended. There is no large collection of free intraperitoneal air. No unexpected extraosseous calcifications or radiopaque foreign bodies are seen. Osseous structures show age-related degenerative changes with levoscoliotic deformity of the lumbar spine. IMPRESSION: 1. Nonobstructed small bowel gas pattern. Dictated by: Dictated on workstation # [id number]
== END ==
LOC: RAD 13:29
PROVIDERS: ATTEND Urology
DX: N20.0 Calculus of kidney (principal)
CPT/HCPCS: 74018

== ENCOUNTER 2020-11-24 11:00 | Outpatient (RCR) | payer OTHER ==
[2020-11-22 15:43] LABS: BILIRUBIN,URINE NEGATIVE (NEGATIVE); CLARITY,URINE CLEAR; COLOR,URINE YELLOW; GLUCOSE, URINE (UA) NEGATIVE (NEGATIVE); KETONES,URINE NEGATIVE (NEGATIVE); LEUKOCYTE ESTERASE ,URINE NEGATIVE (NEGATIVE); NITRITE,URINE NEGATIVE (NEGATIVE); PROTEIN,URINE NEGATIVE (NEGATIVE)
[2020-11-22 15:52] LABS: POTASSIUM 4.2 MMOL/L (3.6-5.0)
[2020-11-22 15:53] LABS: CALCIUM 9.4 MG/DL (8.5-10.1)
[2020-11-22 15:57] LABS: BACTERIA,URINE NEGATIVE /HPF; PHOSPHORUS 3.5 MG/DL (2.3-4.7); SQUAMOUS EPITHELIAL CELL,UR 0-2 /HPF; WBC,URINE 0-2 /HPF
[2020-11-22 15:58] LABS: CREATININE SERUM 0.89 MG/DL (0.60-1.30)
[2020-11-22 16:00] LABS: URIC ACID 5.7 MG/DL (2.6-7.2)
[~2020-11-24 11:00] MED LIST changes: -CITA10TA7 PO; +CITA10TA9 PO
== END 2021-02-20 | disposition home or self-care (01) ==
LOC: LAB 11:00
PROVIDERS: ATTEND Urology
DX: N20.9 Urinary calculus, unspecified (principal)
CPT/HCPCS: 36415; 80048; 81000; 82140; 82340; 82507; 82570; 83735; 83945; 83986; 84100; 84105; 84133; 84300; 84392; 84550; 84560

== ENCOUNTER → 2021-06-26 | Outpatient (CLI) | payer OTHER ==
--- NOTE | 2021-06-26 11:30 | Diagnostic Imaging Report ---
EXAMINATION: CT abdomen and pelvis without contrast. TECHNIQUE: Multiple contiguous axial images were obtained through the abdomen and pelvis without the use of intravenous contrast. All CT scans use one or more of the following dose optimizing techniques: automated exposure control, MA and/or KvP adjustment based on patient size and exam type or iterative reconstruction. HISTORY: H/O STONES COMPARISON: 07/28/2020. FINDINGS: Lung bases: Bibasilar dependent atelectasis. Solid organs: The liver is normal. The gallbladder is normal. There is no biliary ductal dilation. Pancreas is normal. Spleen is normal. Stable left adrenal adenoma. The right adrenal gland is unremarkable. There is no visualized renal calculus or hydronephrosis. Bowel: The stomach and small bowel are normal without obstruction. There is scattered colonic diverticulosis. No findings of acute appendicitis. Peritoneum: There is no intraperitoneal free fluid or free air. No suspicious lymphadenopathy. Vasculature: Calcification of the aorta without aneurysm. Musculoskeletal: Degenerative changes of the spine without suspicious osseous lesion or compression fracture. There is a right inguinal hernia which contains fat at the tip of the urinary bladder. Pelvis: The prostate gland is enlarged. The urinary bladder is normal. IMPRESSION: 1. No visualized renal calculus or hydronephrosis. 2. Right inguinal hernia containing a portion of the anterior urinary bladder. 3. Colonic diverticulosis. Dictated by: Dictated on workstation # [id number]
== END ==
LOC: RAD 14:45
PROVIDERS: ATTEND Urology
DX: K40.90 Unilateral inguinal hernia, without obstruction or gangrene, not specified as recurrent (principal); K57.30 Diverticulosis of large intestine without perforation or abscess without bleeding; Z87.442 Personal history of urinary calculi
CPT/HCPCS: 74176